=== PATIENT | male | born 1945 | race Caucasian/White ===

== ENCOUNTER → 2018-06-18 16:19 | Outpatient (REF) | payer MEDICARE, SELFPAY ==
[2018-06-18 19:13] LABS: Hemoglobin A1C 7.9 % (4.5-6.2)
[2018-06-18 19:16] LABS: Anion Gap 13.5 mmol/L (3-11); BUN 23 mg/dL (7-18); CO2 23.5 mmol/L (21.0-32.0); CREATININE 1.14 mg/dL (0.70-1.30); Calcium 8.9 mg/dL (8.5-10.1); Chloride 106 mmol/L (98-107); Glucose 93 mg/dL (70-100); Potassium 4.3 mmol/L (3.5-5.1); Sodium 143 mmol/L (136-145); TSH (W/Ref FT4) 0.41 uIU/mL (0.358-3.74)
[2018-06-18 19:23] LABS: COMMENT (LAB VIEW ONLY) 256.44 mg/dL; Microalb ug/mg Crea 5.1 ug/mg Cr
[2018-06-22 10:15] LABS: Hepatitis C Ab w Rflx HCV PCR Negative (NEGAT)
== END ==
LOC: NCHCN 16:19
PROVIDERS: PCP Family Medicine; Visit Provider Family Medicine
DX: E11.65 Type 2 diabetes mellitus with hyperglycemia (principal); E03.9 Hypothyroidism, unspecified; I10 Essential (primary) hypertension
CPT/HCPCS: 80048; 86803; 82043; 82570; 83036; 84443

== ENCOUNTER 2019-01-21 15:18 | Outpatient (REF) | payer MEDICARE, SELFPAY ==
[2019-01-21 14:13] LABS: Anion Gap 12.4 mmol/L (3-11); BUN 18 mg/dL (7-18); CO2 24.6 mmol/L (21.0-32.0); CREATININE 1.13 mg/dL (0.70-1.30); Chloride 101 mmol/L (98-107); Cholesterol 164 mg/dL (50-200); Glucose 319 mg/dL (70-100); HDL Cholesterol 49 mg/dL (40-60); LDL CHOLESTEROL 88 mg/dL (<100); Potassium 4.2 mmol/L (3.5-5.1); Sodium 138 mmol/L (136-145); Triglyceride 162 mg/dL (30-150)
[2019-01-21 14:22] LABS: Hemoglobin A1C 11.8 % (4.5-6.2)
== END 2019-01-21 15:38 ==
LOC: NCHCN 15:18
PROVIDERS: PCP Family Medicine; Visit Provider Family Medicine
DX: I10 Essential (primary) hypertension (principal); E11.65 Type 2 diabetes mellitus with hyperglycemia
CPT/HCPCS: 80048; 80061; 83721; 83036

== ENCOUNTER 2019-07-01 11:33 | Emergency (ER) | payer MEDICARE, SELFPAY ==
[2019-07-01 11:38] VITALS: BP 123/53; PULSE 78; RESP 16; TEMP 36.7; O2SAT 97
--- NOTE | 2019-07-01 12:06 | W.ED.GENAD ---
Discharge Plan Disposition Patient Disposition: HOME Condition: Stable Discharge Details Chief Complaint: Urinary Clinical Impression: Balanoposthitis, Hyperglycemia Primary Care Provider: Delia Holden ED Provider: Kasi Patino Home Meds and New Rx's Prescriptions: New clotrimazole 1 % cream 1 applic TP BID Qty: 14 RF: 1 mupirocin 2 % ointment 1 applic TP BID Qty: 15 RF: 0 Continued glimepiride 2 MG tablet 2 mg PO DAILY RF: 0 pravastatin [Pravachol] 80 MG tablet 80 mg PO DAILY RF: 0 metformin [Glucophage] 1,000 MG tablet 1,000 mg PO BID RF: 0 levothyroxine [Synthroid] 150 MCG tablet 150 mcg PO DAILY RF: 0 hydrochlorothiazide 25 MG tablet 25 mg PO DAILY RF: 0 lisinopril 40 MG tablet 40 mg PO DAILY RF: 0 aspirin [Aspir-81] 81 MG tablet,delayed release (DR/EC) 81 mg PO DAILY RF: 0 Discharge Instructions Instructions: Johan (ED) Additional Instructions: Please use topical antibiotics twice a day until symptoms resolve. Return immediately to the emergency department if you have inability to retract foreskin, fever chills, any rapid spreading of redness or discomfort to testicles or scrotum. Otherwise it is very important that you follow-up with your primary care provider for reassessment of your high blood sugar. Referrals: Delia Holden MD [Primary Care Provider] - 1 week Discharge Data Discharge Date/Time-TO BE ENTERED AT DEPARTURE: 07/01/19 13:30 Medical Decision Making Patient presenting to the emergency department for chief complaint penile discomfort. Patient reports this is been going on for the past month and does state some sensation of it being cracked and irritated. Patient states discomfort with retraction of the foreskin but denies any inability to perform this. Physical exam shows erythema and fissures of the foreskin with some edema. Patient does not have paraphimosis as forced skin is retractable, no sign of Chelsie's gangrene, no other systemic symptoms noted. Patient is a diabetic so blood sugar was checked even though he remains in states that he is asymptomatic. Blood sugar was 371. Patient states that he has not been checking his sugar and also has not been taking his weekly injectable insulin which she does not remember which type he is on. He states that there was a complication with the pharmacy obtaining his medication but that his blood sugar does run high on occasions and 371 is not significantly high for him. Patient now states he can pear picker this medication as since he was here and restart his meds as prescribed. Given that patient has no other symptoms I do not feel any further work-up is needed for patient's hyperglycemia. I feel that patient has Balanoposthitis. Patient placed up on Bactroban and Mupirocin twice daily. Return precautions were discussed. After discussion of diagnosis and plan of care patient has no further needs, questions, or concerns and states clear understanding to return to the emergency department for any worsening symptoms. HPI General Mode of arrival: ambulatory. Date/Time Provider Initiated Documentation: 07/01/19 11:47. Limitations to Documentation: no limitations. Information obtained by: patient, RN notes reviewed and old records reviewed. History of Present Illness 74 year old M presents to the emergency department with the chief complaint of Penis discomfort and swelling, described as moderate, with intensity rated at 6. Quality is described as burning and aching, and is localized to the genitals. Patient started experiencing this month(s) (1) and it has been constant. No relieving factors improve symptom(s), No exacerbating factors reported . Patient notes no other symptoms.. Patient did receive the following treatments prior to arrival, none Related Data Home Medications Medication Instructions Recorded Confirmed glimepiride 2 mg PO DAILY tab-cap 11/15/16 07/01/19 hydrochlorothiazide 25 mg PO DAILY tab-cap 11/15/16 07/01/19 levothyroxine [Synthroid] 150 mcg PO DAILY tab-cap 11/15/16 07/01/19 lisinopril 40 mg PO DAILY tab-cap 11/15/16 07/01/19 metformin [Glucophage] 1,000 mg PO BID tab-cap 11/15/16 07/01/19 pravastatin [Pravachol] 80 mg PO DAILY tab-cap 11/15/16 07/01/19 aspirin [Aspir-81] 81 mg PO DAILY 01/08/17 07/01/19 clotrimazole 1 applic TP BID #14 gm 07/01/19 mupirocin 1 applic TP BID #15 gm 07/01/19 Previous Rx's Medication Instructions Recorded clotrimazole 1 applic TP BID #14 gm 07/01/19 mupirocin 1 applic TP BID #15 gm 07/01/19 Allergies Allergy/AdvReac Type Severity Reaction Status Date / Time No Known Drug Allergies Allergy Unverified 07/01/19 11:43 General Stated Complaint: Urinary SHAHAB: 3 Review of Systems Constitutional Denies chills and Denies fever(s) Gastrointestinal Denies abdominal pain, Denies nausea and Denies vomiting Genitourinary Reports as per HPI, Denies hematuria, Denies difficulty urinating, Reports genital pain, Reports dysuria, Denies penile discharge, Denies scrotal swelling, Denies testicular mass, Denies testicular pain, Denies urinary frequency, Denies urinary incontinence and Denies urinary urgency Integumentary/Breasts Denies rash [facility] Surgical History Colonoscopy - IV Sedation (01/08/17) Tonsillectomy Social History Smoking/Tobacco Use Status: Former Tobacco Use Alcohol Intake: current Alcohol Intake frequency: 0-2 drinks per day Alcohol type: beer Drug use: Never Do you feel safe at home: Yes Do you feel safe in your relationship?: Yes Exam Const General: cooperative and no acute distress Orientation: alert, awake and oriented x3 Resp Effort & Inspection: normal respiratory effort and able to speak in complete sentences GI Palpation: nontender Penis: edematous, erythematous, foreskin retracts, no paraphimosis, pustules and ulceration Meatus: no meatla discharge Scrotum: scrotum normal Testes: normal, testicular lie normal and epididymides normal Course Vital Signs Temperature 36.7 C 07/01/19 11:38 Pulse 78 07/01/19 11:38 Respiratory Rate 16 07/01/19 11:38 Blood Pressure 123/53 L 07/01/19 11:38 Pulse Oximetry 97 07/01/19 11:38 Temperature 36.7 C 07/01/19 11:38 Temperature Source Skin 07/01/19 11:38 Pulse 78 07/01/19 11:38 Respiratory Rate 16 07/01/19 11:38 Respiratory Effort Non-Labored 07/01/19 11:41 Blood Pressure 123/53 L 07/01/19 11:38 Blood Pressure Position Sitting 07/01/19 11:38 Pulse Oximetry 97 07/01/19 11:38 Oxygen Delivery Method Room Air 07/01/19 11:38 Oxygen Flow Rate 0 07/01/19 11:38 Pain Level 5 07/01/19 11:38
[2019-07-01 12:08] LABS: Bilirubin Negative (Negative); Blood Negative (Negative); Clarity Clear (Clear); Glucose 500 mg/dL (Negative); Ketones Negative (Negative); Leukocyte Esterase Negative (Negative); Nitrite Negative (Negative); Urobilinogen 0.2 EU/dL (Up TO 0.2)
== END 2019-07-01 13:30 | disposition home or self-care (01) ==
PROVIDERS: Emergency Provider Nurse Practitioner Family; PCP Family Medicine
DX: N47.6 Balanoposthitis (principal); E11.65 Type 2 diabetes mellitus with hyperglycemia; Z79.84 Long term (current) use of oral hypoglycemic drugs
CPT/HCPCS: 36416; 82962; 99283; 81003

== ENCOUNTER 2019-07-15 03:48 | Outpatient (CLI) | payer OTHER, MEDICARE, SELFPAY ==
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
== END 2019-07-15 04:08 ==
PROVIDERS: PCP Family Medicine; Visit Provider Family Medicine
DX: M79.642 Pain in left hand (principal); R07.81 Pleurodynia; S62.305A Unspecified fracture of fourth metacarpal bone, left hand, initial encounter for closed fracture; J90 Pleural effusion, not elsewhere classified; S22.41XD Multiple fractures of ribs, right side, subsequent encounter for fracture with routine healing
CPT/HCPCS: 71046; 71100; 73130

== ENCOUNTER 2019-07-20 14:27 | Outpatient (CLI) | payer OTHER, SELFPAY ==
--- NOTE | 2019-07-20 14:11 | DI.RAD_ITS ---
SYMPTOMS/DIAGNOSIS: F/U FRACTURE LEFT HAND: Three views were obtained. The previously described fracture of the 4th metacarpal is again noted with little if any change in alignment of the fracture fragments in comparison with the previous examination of 07/15/19.
== END 2019-07-20 14:47 ==
PROVIDERS: PCP Family Medicine; Referring Provider Family Medicine; Visit Provider Student in an Organized Health Care Education/Training Program
DX: S62.305D Unspecified fracture of fourth metacarpal bone, left hand, subsequent encounter for fracture with routine healing (principal)
CPT/HCPCS: 73130

== ENCOUNTER 2019-08-24 07:20 | Outpatient (CLI) | payer MEDICARE, SELFPAY ==
--- NOTE | 2019-08-24 13:32 | DI.RAD_ITS ---
EXAM: XR HAND LT COMPLETE CLINICAL HISTORY: F/U FRACTURE TECHNIQUE: COMPARISON: XR hand LT complete from 07/20/2019 FINDINGS: Three views were obtained show previously described fracture of the 3rd metacarpal with no gross inte rval change in alignment of the fracture fragments comparison with previous examination of July 20. There is increased callus at the fracture site. IMPRESSION:
== END 2019-08-24 07:40 ==
PROVIDERS: PCP Family Medicine; Visit Provider Student in an Organized Health Care Education/Training Program
DX: S62.335D Displaced fracture of neck of fourth metacarpal bone, left hand, subsequent encounter for fracture with routine healing (principal)
CPT/HCPCS: 73130

== ENCOUNTER 2019-08-24 18:30 | Outpatient (REF) | payer MEDICARE, SELFPAY ==
[2019-08-24 18:37] LABS: HCT 42.7 % (40.0-50.0); HGB 14.2 g/dL (13.5-17.5); Mean Corp. HGB Concentration 33.3 g/dL (32.0-36.0); Mean Corpuscular Hemoglobin 30.9 pg (27.0-33.0); Mean Platelet Volume 12.2 fL (8.0-11.0); Platelet Count 287 x1000/uL (130-400); RBC 4.59 m/cumm (4.50-6.00); RBC Distribution Width 12.6 % (11.8-14.1); White Blood Cell Count 9.75 k/cumm (4.4-10.8)
[2019-08-24 19:01] LABS: Hemoglobin A1C 10.1 % (4.5-6.2)
[2019-08-24 19:27] LABS: ALT 19 U/L (16-63); AST 11 U/L (15-37); Albumin 3.7 g/dL (3.4-5.0); Alkaline Phosphatase 91 U/L (46-116); Amylase 205 U/L (25-115); Anion Gap 17.2 mmol/L (3-11); BUN 18 mg/dL (7-18); Bilirubin, Total 0.4 mg/dL (0.2-1.0); CO2 20.8 mmol/L (21.0-32.0); CREATININE 0.94 mg/dL (0.70-1.30); Chloride 104 mmol/L (98-107); Glucose 376 mg/dL (70-100); Potassium 4.4 mmol/L (3.5-5.1); Sodium 142 mmol/L (136-145); TSH (W/Ref FT4) 2.96 uIU/mL (0.36-3.74); Total Protein 6.9 g/dL (6.4-8.2)
[2019-08-24 19:57] LABS: Lipase 5048 U/L (73-393)
== END 2019-08-24 18:50 ==
LOC: NCHCN 18:30
PROVIDERS: PCP Family Medicine; Visit Provider Family Medicine
DX: E11.65 Type 2 diabetes mellitus with hyperglycemia (principal); E03.9 Hypothyroidism, unspecified
CPT/HCPCS: 80053; 83690; 85027; 82150; 83036; 84443

== ENCOUNTER 2019-09-01 00:39 | Outpatient (CLI) | payer MEDICARE, SELFPAY ==
[2019-09-01] MEDS: Omnipaque 350 MG/ML 100 ML BTL IJ (11:07)
[2019-09-01] MEDS: Normal Saline Flush 10 ML SYR IVP (11:08)
--- NOTE | 2019-09-01 11:10 | DI.CT_ITS ---
EXAM: CT ABDOMEN WO/W CLINICAL HISTORY: PANCREATIC DISORDER, STONE K86.9. TECHNIQUE: The exam was performed according to the usual protocol. COMPARISON: CT_ABDOMEN, PELVIS from 07/02/2019 FINDINGS: When compared with the previous examination, again noted is hepatomegaly. A small area of radiolucen cy in the posterior right hepatic lobe proved to represent a hemangioma on the prior study. The gall bladder is contracted. There are no gallstones. There is pancreatic atrophy and innumerable pancreat ic calculi are demonstrated. The findings consistent with the residua of a pancreatitis. When compar ed with the prior study, again noted is a 8 mm stone in the pancreas adjacent to the proximal duct wi th resultant pancreatic ductal dilatation which may be slightly increased when compared with the prio r study of 07/02/2019. There is no evidence of a pancreatic mass. The spleen is again noted to conta in a region of radiolucency superiorly which is unchanged and likely represents a cyst. Again noted are small left renal cysts. The adrenals are intact. There is no evidence of bowel obstruction. No focal bowel abnormality is apparent. There is no evidence of free air or free fluid in the demonstra sukhwinder portions of the intraperitoneal space. IMPRESSION: The abdominal CT is compared with a prior study and again reveals atrophic changes involving the mclain creas with numerous calcifications. A calcification overlying the proximal portion of the pancreatic duct is unchanged. There may be slight interval increase in the diameter of the pancreatic duct. Th ere is no evidence of dilatation of the intrahepatic or common duct. Again noted is a small right he patic mass which was previously demonstrated to represent hemangioma. No other hepatic abnormality i s identified.
== END 2019-09-01 00:59 ==
PROVIDERS: PCP Family Medicine; Visit Provider Family Medicine
DX: K86.89 Other specified diseases of pancreas (principal); D18.03 Hemangioma of intra-abdominal structures
CPT/HCPCS: 74170; J3490

== ENCOUNTER 2019-09-02 14:16 | Outpatient (REF) | payer MEDICARE, SELFPAY ==
[2019-09-02 20:04] LABS: COMMENT (LAB VIEW ONLY) 81.65 mg/dL; Microalb ug/mg Crea 13.5 ug/mg Cr
== END 2019-09-02 14:36 ==
LOC: NCHCN 14:16
PROVIDERS: PCP Family Medicine; Visit Provider Family Medicine
DX: E11.65 Type 2 diabetes mellitus with hyperglycemia (principal)
CPT/HCPCS: 82043; 82570

== ENCOUNTER 2019-09-21 14:14 | Outpatient (CLI) | payer MEDICARE, SELFPAY ==
--- NOTE | 2019-09-21 14:07 | DI.RAD_ITS ---
EXAM: XR HAND LT LIMITED INDICATION: F/U FRACTURE. COMPARISON: XR HAND LT COMPLETE from 08/24/2019 TECHNIQUE: 2D digital imaging was performed. FINDINGS: There is no change in alignment of the fracture involving the left 4th metacarpal. The fracture line is still well visualized. No new fractures or dislocations are present. There are mild degenerativ e changes in the hand and wrist. The soft tissues are unremarkable. IMPRESSION: Stable left 4th metacarpal fracture.
== END 2019-09-21 14:34 ==
PROVIDERS: PCP Family Medicine; Visit Provider Student in an Organized Health Care Education/Training Program
DX: S62.335D Displaced fracture of neck of fourth metacarpal bone, left hand, subsequent encounter for fracture with routine healing (principal)
CPT/HCPCS: 73120

== ENCOUNTER 2020-01-05 15:58 | Outpatient (CLI) | payer OTHER, MEDICARE, SELFPAY ==
--- NOTE | 2020-01-05 15:00 | DI.RAD_ITS ---
EXAM: XR HAND LT LIMITED INDICATION: FOLLOW UP. COMPARISON: XR HAND LT LIMITED from 09/21/2019 TECHNIQUE: 2D digital imaging was performed. FINDINGS: There has been continued healing of the previously noted fracture of the 4th metacarpal. There has b een no change in alignment. No new abnormalities are seen. DATA REPOSITORY: RADIATION DOSE DELIVERED:
== END 2020-01-05 16:18 ==
PROVIDERS: PCP Family Medicine; Visit Provider Student in an Organized Health Care Education/Training Program
DX: S62.335D Displaced fracture of neck of fourth metacarpal bone, left hand, subsequent encounter for fracture with routine healing (principal)
CPT/HCPCS: 73120

== ENCOUNTER 2020-04-27 08:52 | Outpatient (REF) | payer MEDICARE, SELFPAY ==
[2020-04-27 17:44] LABS: Hemoglobin A1C 10.4 % (3.8-5.6)
== END 2020-04-27 09:12 ==
LOC: NCHCN 08:52
PROVIDERS: PCP Family Medicine; Visit Provider Family Medicine
DX: E11.65 Type 2 diabetes mellitus with hyperglycemia (principal)
CPT/HCPCS: 83036

== ENCOUNTER 2020-08-11 16:25 | Outpatient (REF) | payer MEDICARE, OTHER, SELFPAY ==
[2020-08-11 19:28] LABS: HCT 38.4 % (40.0-50.0); HGB 13.2 g/dL (13.5-17.5); MCH 31.8 pg (27.0-33.0); MCHC 34.4 % (32.0-36.0); MCV 92.5 fL (80-95); MPV 11.6 fL (8.0-11.0); Platelet Count 261 10^3/uL (130-400); RBC 4.15 10^6/uL (4.36-5.78); RDW 12.1 % (11.8-14.1); WBC 12.06 10^3/uL (4.4-10.8)
[2020-08-11 20:26] LABS: ALT 18 U/L (16-63); AST 9 U/L (15-37); Albumin 3.5 g/dL (3.4-5.0); Alkaline Phosphatase 68 U/L (46-116); BUN 19 mg/dL (7-18); Chloride 105 mmol/L (98-107); Glucose 190 mg/dL (74-106); Potassium 4.1 mmol/L (3.5-5.1); Sodium 139 mmol/L (136-145); TSH (W/Ref FT4) 1.83 uIU/mL (0.36-3.74); Total Protein 6.9 g/dL (6.4-8.2)
[2020-08-11 20:37] LABS: Bilirubin, Total 0.4 mg/dL (0.2-1.0)
[2020-08-11 21:07] LABS: Hemoglobin A1C 10.4 % (<5.7)
== END 2020-08-11 16:45 ==
LOC: NCHCN 16:25
PROVIDERS: PCP Family Medicine; Visit Provider Family Medicine
DX: E11.65 Type 2 diabetes mellitus with hyperglycemia (principal); I10 Essential (primary) hypertension; E78.5 Hyperlipidemia, unspecified; E03.9 Hypothyroidism, unspecified; K76.0 Fatty (change of) liver, not elsewhere classified
CPT/HCPCS: 80053; 85027; 83036; 84443

== ENCOUNTER 2020-11-30 13:44 | Outpatient (REF) | payer MEDICARE, OTHER, SELFPAY ==
--- OUTSIDE RECORDS SUMMARY | 2020-11-30 13:50 | XMS_ITS ---
:1945 Author Care Team Providers Name Role Phone DR. JAMARI CHRISTIAN Primary Care Provider [phone] DR. JAMARI CHRISTIAN Referring Provider [phone] DR. JAMARI CHRISTIAN Primary Care Provider [phone] DR. JAMARI CHRISTIAN Referring Provider [phone] Allergies Code Code System Name Reaction Severity Status Onset NKDA ? Medications Name Status Start Date Stop Date ? ? Basaglar KwikPen U-100 Insulin Active ? N ot available Inject subcutaneously at bedtime. Start with 10 units and titrate every few days for goal of fastings under 140. Up to 50 units Bydureon 2 mg/0.65 mL subcutaneous pen injector Active ? Not available Inject 2 mg every week by subcutaneous route. Comfort EZ Pen Commerce 32 gauge x 3/16 Active ? Not available Use with lantus solostar at bedtime FreeStyle Test strips Active ? Not availa ble TEST ONCE DAILY FreeStyle Test Strips in vitro test Active ? Not available Use one strip to test blood sugar every morning before breakfas t glimepiride 4 mg tablet Active ? Not avai lable Take 1 tablet every day by oral route. Glucophage 500 mg tablet Active ? Not chucho ilable Take 2 tablets twice a day by oral route. hydrochlorothiazide 25 mg tablet Active ? Not available Take 1 tablet every day by oral route. hydrocodone 5 mg-acetaminophen 325 mg tablet Active ? Not available Take 1 tablet every 12 hours by oral route as needed. ibuprofen 800 mg tablet Active ? Not avai lable Take 1 tablet 3 times a day by oral route as needed. Levitra 20 mg tablet Active ? Not availab le TAKE 1 TABLET (20 MG) BY ORAL ROUTE ONC E DAILY NEEDED APPROXIMATELY 1 HOUR BEFORE SEXUAL ACTIVITY lisinopril 40 mg tablet Active ? Not avai lable Take 1 tablet every day by oral route. Novofine 32 32 gauge x 1/4 needle Active ? Not available Test blood glucose daily as directed Pravachol 80 mg tablet Active ? Not avail able Take 1 tablet every day by oral route. Synthroid 150 mcg tablet Active ? Not chucho ilable Take 1 tablet every day by oral route. Victoza 2-Nicanor 0.6 mg/0.1 mL (18 mg/3 mL) subcutaneous pen inject or Active ? Not available Inject 18 mg every week by subcutaneous route. Problems Name Status Onset Date Source ? Adenomatous Polyp of Colon Active 11/10/2016 ? Hypothyroidism Active 03/18/2019 ? Type 2 Diabetes Mellitus Active 03/18/2019 ? Hyperlipidemia Active 03/18/2019 ? Obesity Active 03/18/2019 ? Tobacco User Active 03/18/2019 ? Hypertensive Disorder Active 03/18/2019 ? Umbilical Hernia Active 03/18/2019 ? Steatosis of Liver Active 03/18/2019 ? Spinal Stenosis Active 03/18/2019 ? Low Back Pain Active 03/18/2019 ? Type II Diabetes Mellitus Uncontrolled Active ? ? Disorder of Pancreas Active ? ? Rib Pain Active ? ? Disorder Due to and Following Fracture at Wrist Active ? ? And/or Hand Level History of Adenomatous Polyp of Colon Active ? ? Joint Pain in Left Hand Active ? ? Procedures Date Name Performed by ? 01/08/2017 Colonoscopy Information not avai lable ? Tonsillectomy Information not avai lable Results Lab Results None recorded. Past Encounters 10/28/2019 Vince Nation, DO: [address] [place] [address], Ph. Social History None recorded. Vaccine List Vaccine Type Td (adult) 02/05/2019 zoster live 04/05/2010 Plan of Care Reminders Provider Appointments None ? ? recorded. Lab None ? ? recorded. Referral None ? ? recorded. Procedures None ? ? recorded. Surgeries None ? ? recorded. Imaging None ? ? recorded. Vitals None recorded.
[2020-11-30 16:33] LABS: COMMENT (LAB VIEW ONLY) 280.87 mg/dL; Microalb ug/mg Crea 23.5 ug/mg Cr
== END 2020-11-30 14:04 ==
LOC: NCHCN 13:44
PROVIDERS: PCP Family Medicine; Visit Provider Family Medicine
DX: E11.65 Type 2 diabetes mellitus with hyperglycemia (principal)
CPT/HCPCS: 82043; 82570

== ENCOUNTER 2021-02-09 02:19 | Outpatient (CLI) | payer MEDICARE, OTHER, SELFPAY ==
[2021-02-09 13:46] LABS: Source Nasal/Nares
[2021-02-09 21:16] LABS: COVID-19 PCR Negative (Negative)
== END 2021-02-09 02:20 | disposition home or self-care (01) ==
LOC: LBO 02:19
PROVIDERS: PCP Family Medicine; Visit Provider Surgery
DX: Z20.822 Contact with and (suspected) exposure to COVID-19 (principal); Z01.818 Encounter for other preprocedural examination
CPT/HCPCS: 87635

== ENCOUNTER 2021-05-17 17:11 | Emergency (ER) | payer MEDICARE, OTHER, SELFPAY ==
[2021-05-17 17:18] VITALS: BP 154/69; PULSE 57; TEMP 36.2; O2SAT 100
--- NOTE | 2021-05-17 17:40 | ED.GENADUL_ITS ---
Discharge Plan Disposition Patient Disposition: HOME Condition: Stable Discharge Details Clinical Impression: Back pain with left-sided sciatica Primary Care Provider: Delia Holden ED Provider: Pablo Alvarenga Home Meds and New Rx's Prescriptions: Continued glimepiride 2 MG tablet 2 mg PO DAILY RF: 0 pravastatin [Pravachol] 80 MG tablet 80 mg PO DAILY RF: 0 metformin [Glucophage] 1,000 MG tablet 1,000 mg PO BID RF: 0 levothyroxine [Synthroid] 150 MCG tablet 150 mcg PO DAILY RF: 0 lisinopril 40 MG tablet 40 mg PO DAILY RF: 0 aspirin [Aspir-81] 81 MG tablet,delayed release (DR/EC) 81 mg PO DAILY RF: 0 Levemir FlexTouch U-100 Insuln 100 unit/mL (3 mL) insulin pen 70 unit SUBCUT DAILY RF: 0 Victoza 3-Nicanor 0.6 mg/0.1 mL (18 mg/3 mL) pen injector 18 mg SUBCUT DAILY RF: 0 Discharge Instructions Instructions: Sciatica (ED) Additional Instructions: Please take ibuprofen over the counter. Take 600mg by mouth every 6 hours as needed for pain --start tomorrow. Use [id number] lidocaine patches. Dose these according to label. Please follow-up with your primary care physician. If pain persists, additional diagnostic testing including MRI may be indicated. Please return to the emerge department for any worsening or new concerning symptoms. Referrals: Delia Holden MD [Primary Care Provider] - Medical Decision Making 75-year-old male with acute on chronic low back pain with sciatic component. Patient has no signs/symptoms of cauda equina. Plan to treat with Toradol 30 mg IM and lidocaine patch. Plan will be for outpatient follow-up with PCP. I explained the patient he may need repeat MRI if pain persist or condition progresses. He understands he should call his primary care physician tomorrow. Usual and customary discharge instructions otherwise reviewed with patient. HPI General Mode of arrival: ambulatory . Date/Time Provider Initiated Documentation: 05/17/21 17:19 . Limitations to Documentation: no limitations . Information obtained by: patient . HPI Narrative: 75-year-old male here with chief complaint of back pain. Patient notes chronic back pain for 15 years, now with worsening exacerbation over the past few days. Pain localized to left lower lateral back and radiates into his buttock and lateral to anterior thigh. Patient denies recent injury. No fever. No numbness. No associated bowel or bladder dysfunction. Patient is diabetic but notes blood sugars have been well controlled with insulin. Related Data Home Medications Medication Instructions Recorded Confirmed glimepiride 2 mg PO DAILY tab-cap 11/15/16 05/17/21 levothyroxine [Synthroid] 150 mcg PO DAILY tab-cap 11/15/16 05/17/21 lisinopril 40 mg PO DAILY tab-cap 11/15/16 05/17/21 metformin [Glucophage] 1,000 mg PO BID tab-cap 11/15/16 05/17/21 pravastatin [Pravachol] 80 mg PO DAILY tab-cap 11/15/16 05/17/21 aspirin [Aspir-81] 81 mg PO DAILY 01/08/17 05/17/21 Levemir FlexTouch U-100 Insuln 70 unit SUBCUT DAILY 05/17/21 05/17/21 Victoza 3-Nicanor 18 mg SUBCUT DAILY 05/17/21 05/17/21 Allergies Allergy/AdvReac Type Severity Reaction Status Date / Time No Known Drug Allergies Allergy Unverified 05/17/21 17:23 General Stated Complaint: Nk/Back Pain SHAHAB: 4 Review of Systems All systems reviewed & are unremarkable except as noted in HPI and below Constitutional Constitutional: Denies fever(s) Musculoskeletal Musculoskeletal: Reports as per HPI Integumentary/Breasts Skin/Breast: Denies rash Neurologic Neurologic: Reports as per HPI [facility] Surgical History Colonoscopy - IV Sedation (01/08/17) Tonsillectomy Social History Smoking/Tobacco Use Status: Former Tobacco Use Smoking risk assessment performed?: Yes Alcohol Intake: current Alcohol Intake frequency: 0-2 drinks per day Alcohol type: beer Drug use: Never Substance use type: does not use Do you feel safe at home: Yes Do you feel safe in your relationship?: Yes Exam Const General: cooperative and no acute distress HENMT Mouth: moist mucous membranes Eyes Conjunctivae: normal conjunctivae Sclera: normal sclerae Neck Neck: trachea midline and supple Resp Auscultation: clear to auscultation bilaterally, no rales, no rhonchi and no wheezes Cardio Rate: regular rate and not tachycardic Rhythm: regular rhythm Heart Sounds: murmur GI Palpation: soft, not firm, no guarding, no masses, not rigid and nontender Back/Spine/Pelvis Thoracic/Lumbar Spine: No thoracic spinal tenderness, No lumbar spinal tenderness and straight leg raise positive Skin General skin exam: no rashes or lesions noted Neuro General: patient alert, patient awake, patient oriented x3 and tone normal Cognition: normal cognition Motor: strength 5/5 throughout Sensory Exam: no sensory deficits noted Other: No saddle anesth Extrem General: no edema Course Vital Signs Vital signs: Vital Signs Temperature 36.2 C L 05/17/21 17:18 Pulse 57 L 05/17/21 17:18 Blood Pressure 154/69 H 05/17/21 17:18 Pulse Oximetry 100 05/17/21 17:18 Temperature 36.2 C L 05/17/21 17:18 Pulse 57 L 05/17/21 17:18 Respiratory Effort Non-Labored 05/17/21 17:22 Blood Pressure 154/69 H 05/17/21 17:18 Blood Pressure Position Sitting 05/17/21 17:18 Pulse Oximetry 100 05/17/21 17:18 Oxygen Delivery Method Room Air 05/17/21 17:18 Oxygen Flow Rate 0 05/17/21 17:18 Pain Level 9 05/17/21 17:18
[2021-05-17] MEDS: Lidocaine 5% Patch 1 PATCH TP (17:59)
[2021-05-17] MEDS: Ketorolac 30 MG/ML VIAL IM (18:01)
== END 2021-05-17 18:10 | disposition home or self-care (01) ==
PROVIDERS: Emergency Provider Student in an Organized Health Care Education/Training Program; PCP Family Medicine
DX: M54.42 Lumbago with sciatica, left side (principal)
CPT/HCPCS: 96372; 99284; 99283; J1885

== ENCOUNTER 2021-05-21 16:00 | Outpatient (CLI) | payer MEDICARE, OTHER, SELFPAY ==
--- NOTE | 2021-05-21 | DI.RAD_ITS ---
Exam(s) XR HIP LT COMPLETE AP PELVIS EXAM: XR HIP LT COMPLETE AP PELVIS CLINICAL HISTORY: HIP JOINT PAIN; LEFT M25.552. TECHNIQUE: 2D digital imaging was performed. COMPARISON: CT CT ABDOMEN WO/W from 09/01/[address] ABDOMEN WO/W from 09/01/2019 FINDINGS: There is no evidence of pelvic nor hip fracture. Mild degenerative changes in the left hip noted. N o osseous lesions. Advanced disc space narrowing in the lumbar spine noted. Sacroiliac joints appea r unremarkable. IMPRESSION: DATA REPOSITORY: RADIATION DOSE DELIVERED:
--- NOTE | 2021-05-21 16:44 | DI.VRAD_ITS ---
PROCEDURE INFORMATION: Exam: XR Left Hip Exam date and time: 05/21/2021 3:50 PM Age: 75 years old Clinical indication: Hip pain; Left hip TECHNIQUE: Imaging protocol: XR Left hip. Views: 2 or 3 views hip with pelvis when performed. COMPARISON: CT ABDOMEN, PELVIS 07/02/2019 10:01 AM FINDINGS: Bones/joints: Degenerative changes in both hips; There is no evidence of acute fracture.There is no evidence of malalignment or dislocation. Degenerative changes in the lumbar spine Soft tissues: Unremarkable. IMPRESSION: There is no evidence of acute fracture.There is no evidence of malalignment or dislocation. Dictated and Authenticated by: Maude Velarde MD. Ordering:DEANDRA Lin MD
== END 2021-05-21 16:20 ==
PROVIDERS: PCP Family Medicine; Visit Provider Family Medicine
DX: M25.552 Pain in left hip (principal)
CPT/HCPCS: 73502

== ENCOUNTER 2021-05-21 17:09 | Outpatient (REF) | payer MEDICARE, OTHER, SELFPAY ==
[2021-05-21 22:08] LABS: Bilirubin Negative (Negative); Blood Negative (Negative); Clarity Clear (Clear); Glucose 250 mg/dL (Negative); Ketones Negative (Negative); Leukocyte Esterase Negative (Negative); Nitrite Negative (Negative); Specific Gravity >= 1.030 (1.005-1.025); Urobilinogen 0.2 EU/dL (Up TO 0.2)
[2021-05-21 22:19] LABS: Bacteria Negative HPF (Negative); C & S Indicated? No; Crystals Few Amorphous HPF (Negative); Epithelial Cells Many HPF (Negative); Mucus Heavy (Negative); RBC 0-2 HPF (0-2); WBC 0-2 HPF (0-5)
== END 2021-05-21 17:10 | disposition home or self-care (01) ==
LOC: NCHCN 17:09
PROVIDERS: PCP Family Medicine; Visit Provider Family Medicine
DX: R39.15 Urgency of urination (principal)
CPT/HCPCS: 81003; 81015

== ENCOUNTER 2021-06-21 03:24 | Outpatient (CLI) | payer MEDICARE, OTHER, SELFPAY ==
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
== END 2021-06-21 03:44 ==
PROVIDERS: PCP Family Medicine; Visit Provider Family Medicine
DX: M47.816 Spondylosis without myelopathy or radiculopathy, lumbar region (principal); M48.061 Spinal stenosis, lumbar region without neurogenic claudication; M54.42 Lumbago with sciatica, left side; M25.552 Pain in left hip; W19.XXXA Unspecified fall, initial encounter
CPT/HCPCS: 72148

== ENCOUNTER → 2021-09-18 11:15 | Outpatient (BNVA) | payer MEDICARE, OTHER, SELFPAY | PROVIDERS: PCP Family Medicine; Referring Provider Family Medicine; Visit Provider Internal Medicine Cardiovascular Disease | DX: Z01.810 Encounter for preprocedural cardiovascular examination (principal); R94.31 Abnormal electrocardiogram [ECG] [EKG]; M48.00 Spinal stenosis, site unspecified; I10 Essential (primary) hypertension; E11.9 Type 2 diabetes mellitus without complications | CPT/HCPCS: 93005; 99203; 99214 ==

== ENCOUNTER 2021-10-02 11:15 | Outpatient (REF) | payer MEDICARE, OTHER, SELFPAY ==
[2021-10-02 14:43] LABS: HCT 42.9 % (40.0-50.0); HGB 14.3 g/dL (13.5-17.5); MCH 30.9 pg (27.0-33.0); MCHC 33.3 % (32.0-36.0); MCV 92.7 fL (80-95); MPV 11.4 fL (8.0-11.0); Platelet Count 238 10^3/uL (130-400); RBC 4.63 10^6/uL (4.36-5.78); WBC 8.48 10^3/uL (4.4-10.8)
[2021-10-02 15:46] LABS: ALT 29 U/L (16-63); AST 13 U/L (15-37); Albumin 3.6 g/dL (3.4-5.0); Alkaline Phosphatase 68 U/L (46-116); Anion Gap 10.2 mmol/L (3-11); BUN 16 mg/dL (7-18); Bilirubin, Total 0.3 mg/dL (0.2-1.0); CO2 25.8 mmol/L (21.0-32.0); CREATININE 0.8 mg/dL (0.70-1.30); Calcium 8.6 mg/dL (8.5-10.1); Calculated LDL 36 mg/dL (<100); Chloride 108 mmol/L (98-107); Cholesterol 100 mg/dL (<200); Glucose 156 mg/dL (74-106); HDL Cholesterol 53 mg/dL (40-60); Potassium 4.1 mmol/L (3.5-5.1); Sodium 144 mmol/L (136-145); TSH (W/Ref FT4) 5.81 uIU/mL (0.36-3.74); Total Protein 6.5 g/dL (6.4-8.2); Triglyceride 56 mg/dL (<150)
[2021-10-02 16:32] LABS: FREE T4 1.15 ng/dL (0.76-1.46)
== END 2021-10-02 11:16 | disposition home or self-care (01) ==
LOC: NCHCN 11:15
PROVIDERS: PCP Family Medicine; Visit Provider Family Medicine
DX: E03.9 Hypothyroidism, unspecified (principal); I10 Essential (primary) hypertension; E11.65 Type 2 diabetes mellitus with hyperglycemia; Z01.818 Encounter for other preprocedural examination
CPT/HCPCS: 80053; 80061; 85027; 84439; 84443

== ENCOUNTER 2022-01-07 14:17 | Outpatient (REF) | payer MEDICARE, OTHER, SELFPAY ==
[2022-01-07 17:39] LABS: COMMENT (LAB VIEW ONLY) 41.67 mg/dL; Microalb ug/mg Crea 41.8 ug/mg Cr
[2022-01-07 17:50] LABS: TSH (W/Ref FT4) 2.14 uIU/mL (0.36-3.74)
== END 2022-01-07 14:18 | disposition home or self-care (01) ==
LOC: NCHCN 14:17
PROVIDERS: PCP Family Medicine; Visit Provider Family Medicine
DX: E11.65 Type 2 diabetes mellitus with hyperglycemia (principal); E03.9 Hypothyroidism, unspecified
CPT/HCPCS: 82043; 82570; 84443

== ENCOUNTER 2022-09-08 16:06 | Emergency (ER) | payer MEDICARE, SELFPAY ==
[2022-09-08 16:10] VITALS: BP 127/71; PULSE 86; RESP 16; TEMP 37; O2SAT 98
--- NOTE | 2022-09-08 16:20 | ED.GENADUL_ITS ---
Discharge Plan Disposition Patient Disposition: HOME Condition: Stable Discharge Details Clinical Impression: Abscess, gluteal, left Primary Care Provider: Delia Holden ED Provider: Maria Alejandra Dempsey Home Meds and New Rx's Prescriptions: New clindamycin HCl 150 mg capsule 450 mg PO TID 7 Days Qty: 63 0RF Continued metformin [Glucophage] 1,000 MG tablet 1,000 mg PO BID levothyroxine [Synthroid] 150 MCG tablet 150 mcg PO DAILY lisinopril 40 MG tablet 40 mg PO DAILY ibuprofen 800 mg tablet 800 mg PO TID atorvastatin 40 mg tablet 40 mg PO DAILY Jardiance 25 mg tablet 25 mg PO DAILY hydrocodone-acetaminophen 5-325 mg tablet 1 tab PO BID PRN Victoza 3-Nicanor 0.6 mg/0.1 mL (18 mg/3 mL) pen injector 18 mg SUBCUT DAILY Levemir FlexTouch U-100 Insuln 100 unit/mL (3 mL) insulin pen SUBCUT Discharge Instructions Instructions: Abscess (ED) Additional Instructions: Please take the antibiotic 3 tablets x 3 times daily for the next 7 days. Follow-up with general surgery clinic within 3 to 5 days. He need to have the wound rechecked in 3 days and have the packing removed. If the packing falls out before then that is okay. Keep clean and dry and covered. Follow up with primary care provider in 3-5 days. Return to ED sooner if any worsening or concerns. Increase oral fluids. Please take Tylenol or Ibuprofen with food every 4-6 hours as needed for pain and swelling. Referrals: Louis Montejo MD [ [facility] STAFF PHYSICIAN] - 3 days (Left gluteal abscess, wound re-check) Medical Decision Making 77-year-old male presents to the ER with chief complaint of an abscess to his tailbone which he reports in it for approximately 1 to 2 months. He reports over the last 3 days after sitting on a heating pad he has noticed some drainage. CBC shows mild leukocytosis with a white blood cell count of 13.80, neutrophils 9.63, BUN 22 glucose 257. After further evaluation and necrotic possible tissue labs ordered and CT imaging to evaluate abscess and wound tract. CT exam reports 2.9 x 1.1 cm 184: Spoke with Dr. Montejo who is on-call for general surgery who was able to personally review the CT images. He does not recommend urgent or emergent debridement at this time. He is agreeable to having an I&D here in the ER and follow-up in the office as an outpatient. 1915: Area was cleaned with chlorhexidine, iodine and irrigated with sterile saline. 1 inch packing placed into the wound and 4 x 4 dressing applied. Instructed patient to be seen within 3 to 5 days for wound recheck. I did dis cuss changing the outer dressing daily. If the packing falls out on its own that is okay. Patient verbalized understanding. Will place patient on the care management list to follow-up with general surgery I will place patient on clindamycin. This text was generated using [employer] dictation system, please disregard any oddities of phrase or misspellings. Imaging Data Radiologic Study: Imaging: CT Scan Radiologist's impression: FINDINGS: Stomach and bowel: Visualized small bowel and colon are unremarkable. Appendix: No evidence of appendicitis. Intraperitoneal space: Unremarkable. No free air. No significant fluid collection. Lymph nodes: Unremarkable. No enlarged lymph nodes. Urinary bladder: Normal. No mass. Reproductive: Normal as visualized. Bones/joints: Degenerative changes and levoscoliosis in the visualized lower lumbar spine. Severe left hip degenerative changes No acute fracture. No dislocation. Soft tissues: Locule containing fluid and gas in the medial left gluteal fold axial image 46 measuring 2.9 by 1.1 cm. Mild skin thickening and subcutaneous infiltration Left renal cyst and additional indeterminate hypodensities IMPRESSION: Medial left gluteal/perianal abscess as described Lab Data Lab results reviewed: Yes I reviewed the patient's lab results. Labs: 09/08/22 19:11 Buttock - Left Wound Culture - Pending 09/08/22 19:11 Buttock - Left Gram Stain - Final Laboratory Tests Range/Units 09/08/22 09/08/22 16:45 16:45 WBC (4.4-10.8) 10^3/uL 13.80 H RBC (4.36-5.78) 10^6/uL 5.03 Hgb (13.5-17.5) g/dL 15.8 Hct (40.0-50.0) % 47.0 MCV (80-95) fL 93 MCH (27.0-33.0) pg 31.4 MCHC (32.0-36.0) % 33.6 RDW (11.8-14.1) % 12.3 Plt Count (130-400) 10^3/uL 277 MPV (8.0-11.0) fL 11.1 H Immature Gran % 0.8 Neutrophils % 69.8 Lymphocytes % 17.6 Monocytes % 9.2 Eosinophils % 1.9 Basophils % 0.7 Nucleated RBC % (0.0-0.3) % 0.0 Absolute Neutrophils (1.2-6.7) 10^3/uL 9.63 H Absolute Lymphocytes (1.2-3.4) 10^3/uL 2.43 Absolute Monocytes (0.1-0.8) 10^3/uL 1.27 H Absolute Eosinophils (0.0-0.7) 10^3/uL 0.26 Absolute Basophils (0.0-0.2) 10^3/uL 0.10 Sodium (136-145) mmol/L 141 Potassium (3.5-5.1) mmol/L 4.1 Chloride (98-107) mmol/L 105 Carbon Dioxide (21.0-32.0) mmol/L 26.0 Anion Gap (3-11) mmol/L 10.0 BUN (7-18) mg/dL 22 H Creatinine (0.70-1.30) mg/dL 1.1 Est GFR (CKD-EPI 2020) (mL/min/1.73m2) 70.01 Glucose (74-106) mg/dL 257 H Calcium (8.5-10.1) mg/dL 9.3 Total Bilirubin (0.2-1.0) mg/dL 0.5 AST (15-37) U/L 12 L ALT (16-63) U/L 30 Alkaline Phosphatase (46-116) U/L 95 Total Protein (6.4-8.2) g/dL 7.5 Albumin (3.4-5.0) g/dL 3.7 HPI General Mode of arrival: ambulatory . Date/Time Provider Initiated Documentation: 09/08/22 16:07 . Limitations to Documentation: no limitations . Information obtained by: patient, RN notes reviewed and old records reviewed . HPI Narrative: 77-year-old male presents to the ER with chief complaint of an abscess to his tailbone which he reports in it for approximately 1 to 2 months. He reports over the last 3 days after sitting on a heating pad he has noticed some drainage. He reports tenderness with sitting. Denies any fever body aches chills nausea vomiting or any other associated symptoms. He has a past medical history of spinal stenosis, pancreatic disorder, hypothyroidism hyperlipidemia, hypertension type 2 diabetes. Related Data Home Medications Medication Instructions Recorded Confirmed levothyroxine 150 mcg tablet 150 mcg PO DAILY 11/15/16 09/08/22 (Synthroid) lisinopril 40 mg tablet 40 mg PO DAILY 11/15/16 09/08/22 metformin 1,000 mg tablet 1,000 mg PO BID 11/15/16 09/08/22 (Glucophage) liraglutide 0.6 mg/0.1 mL (18 mg/3 18 mg subcut DAILY 05/17/21 09/08/22 mL) subcutaneous pen injector (Victoza 3-Nicanor) atorvastatin 40 mg tablet 40 mg PO DAILY 09/06/21 09/08/22 empagliflozin 25 mg tablet 25 mg PO DAILY 09/06/21 09/08/22 (Jardiance) hydrocodone 5 mg-acetaminophen 325 1 tab PO BID PRN 09/06/21 09/08/22 mg tablet ibuprofen 800 mg tablet 800 mg PO TID 09/06/21 09/08/22 clindamycin HCl 150 mg capsule 450 mg PO TID 7 days #63 caps 09/08/22 insulin detemir U-100 100 unit/mL device subcut 09/08/22 09/08/22 (3 mL) subcutaneous pen (Levemir FlexTouch U-100 Insulin) Previous Rx's Medication Instructions Recorded clindamycin HCl 150 mg capsule 450 mg PO TID 7 days #63 caps 09/08/22 Allergies Allergy/AdvReac Type Severity Reaction Status Date / Time No Known Drug Allergies Allergy Verified 09/08/22 16:15 General Stated Complaint: Cellulitis SHAHAB: 4 Review of Systems All systems reviewed & are unremarkable except as noted in HPI and below Integumentary/Breasts Skin/Breast: Reports as per HPI and Reports skin swelling PFSH All Active Problems (Updated 09/08/22 @ 19:19 by Maria Alejandra Dempsey NP) Abscess, gluteal, left (Acute) Spinal stenosis (Acute) Tobacco use disorder (Acute) Umbilical hernia (Acute) Obesity (Chronic) Pancreatic disorder (Acute) Fatty liver (Acute) Hypothyroidism (Chronic) Hyperlipidemia (Acute) Hypertension (Chronic) Diabetes mellitus type 2, uncontrolled (Acute) Seborrheic keratoses (Acute) Hip joint pain (Acute) Abnormal EKG (Acute) Back pain with left-sided sciatica (Acute) Fracture of metacarpal neck of left hand, closed (Acute 07/02/19) Medical History Adenomatous colon polyp Estee grade dysplasia 2017 Surgical History Colonoscopy - IV Sedation (01/08/17) Tonsillectomy Social History Smoking/Tobacco Use Status: Current every day Tobacco Type: cigarettes Smoking risk assessment performed?: Yes Alcohol Intake: current Alcohol Intake frequency: 0-2 drinks per day Alcohol type: beer Drug use: Never Substance use type: does not use Do you feel safe at home: Yes Do you feel safe in your relationship?: Yes Additional Social history: lives alone Exam Back/Spine/Pelvis Back/spine/pelvis image: 1. Approximately 2 cm necrotic appearing abscess/ulcer with surrounding dusky tissue, erythema and induration. 2. An additional smaller area of erythema. 3. Erythema Course Vital Signs Vital signs: Vital Signs Temperature 37.0 C 09/08/22 16:10 Pulse 86 09/08/22 16:10 Respiratory Rate 16 09/08/22 16:10 Blood Pressure 127/71 09/08/22 16:10 Pulse Oximetry 98 09/08/22 16:10 Temperature 37.0 C 09/08/22 16:10 Temperature Source Skin 09/08/22 16:10 Pulse 86 09/08/22 16:10 Respiratory Rate 16 09/08/22 16:10 Blood Pressure 127/71 09/08/22 16:10 Pulse Oximetry 98 09/08/22 16:10 Oxygen Delivery Method Room Air 09/08/22 16:10 Oxygen Flow Rate 0 09/08/22 16:10 Pain Level 8 09/08/22 16:10 Comment 09/08/22 16:10 Procedures Abscess I/D Site: Emily-rectal (left gluteal) Side (if applicable): Left Sedation/analgesia: None Local Anesthetic: Lidocaine 1% and With Epi Amount of anesthesia used (mL): 2 Amount of fluid expressed (mL): 3 Irrigation: Yes Packing used?: Plain Complications: Other (None)
--- NOTE | 2022-09-08 16:30 | DI.CT_ITS ---
Exam(s) CT PELVIC W EXAM: CT PELVIC W CLINICAL HISTORY: Eval Pilonidal cyst (Decubitus abscess). TECHNIQUE: Imaging Protocol: Axial computed tomography images with coronal and sagittal reformatted images were created and reviewed. CONTRAST MATERIAL: Intravenous: Omnipaque 350 Contrast volume:100 cc Oral: no COMPARISON: CT CT ABDOMEN WO/W from 09/01/2019 FINDINGS: Bladder: Symmetric distention, no gross wall thickening. Bowel: No obstruction or bowel wall thickening. Peritoneal cavity: No ascites, collection or mesenteric inflammatory response. Atherosclerotic changes of the aorta and iliac arteries. Prostate within normal limits in size. Bones: Severe degenerative changes and scoliosis of the lower lumbar spine.. Severe degenerative oc nges of the left hip with multiple subchondral cysts on both sides of the joint. Soft tissues: Small abscess containing air in the left gluteal fold medially measuring 2.9 x 1.1 cm. Adjacent skin and subcutaneous fat infiltration.. IMPRESSION: Small subcutaneous abscess in the medial left gluteal fold. RADIATION DOSE DELIVERED: Total DLP DATA REPOSITORY: All CT scans at this facility are submitted to the National Radiology Data Registry (NRDR) Dose Index Registry (DIR) with the [employer] (ACR). RADIATION OPTIMIZATION: All CT scans at this facility use at least one of these dose optimization te chniques: automated exposure control; mA and/or kV adjustment per patient size (includes targeted exa ms where dose is matched to clinical indication); or iterative reconstruction.
[2022-09-08] MEDS: Lidocaine/Epinephri/Tetracaine Topical Gel 3 ML TP (16:47)
[2022-09-08 16:52] LABS: Abs Immature Grans 0.11 10^3/uL (0.0-0.06); Absolute Eosinophil Count 0.26 10^3/uL (0.0-0.7); Absolute Lymphocyte Count 2.43 10^3/uL (1.2-3.4); Absolute Monocyte Count 1.27 10^3/uL (0.1-0.8); Basophils % 0.7; Eosinophils % 1.9; HGB 15.8 g/dL (13.5-17.5); Immature Grans % 0.8; Lymphocytes % 17.6; MCH 31.4 pg (27.0-33.0); MCHC 33.6 % (32.0-36.0); MCV 93 fL (80-95); MPV 11.1 fL (8.0-11.0); Monocytes % 9.2; Neutrophils % 69.8; Platelet Count 277 10^3/uL (130-400); RBC 5.03 10^6/uL (4.36-5.78); RDW 12.3 % (11.8-14.1); RDW-SD 42.6 fL
[2022-09-08 16:53] LABS: Absolute Neutrophil Count 9.63 10^3/uL (1.2-6.7)
[2022-09-08 17:05] LABS: ALT 30 U/L (16-63); AST 12 U/L (15-37); Albumin 3.7 g/dL (3.4-5.0); Alkaline Phosphatase 95 U/L (46-116); BUN 22 mg/dL (7-18); Bilirubin, Total 0.5 mg/dL (0.2-1.0); CREATININE 1.1 mg/dL (0.70-1.30); Calcium 9.3 mg/dL (8.5-10.1); Chloride 105 mmol/L (98-107); Estimated GFR 70.01 (mL/min/1.73m2); Glucose 257 mg/dL (74-106); Potassium 4.1 mmol/L (3.5-5.1); Sodium 141 mmol/L (136-145); Total Protein 7.5 g/dL (6.4-8.2)
[2022-09-08] MEDS: Normal Saline Flush 10 ML SYR IVP (17:49)
[2022-09-08] MEDS: Omnipaque 350 MG/ML 100 ML BTL IJ (17:51)
[2022-09-08] MEDS: CLINDAMYCIN 600 MG/50 ML BAG 100 MG IVPB (18:08)
--- NOTE | 2022-09-08 18:36 | DI.VRAD_ITS ---
PROCEDURE INFORMATION: Exam: CT Pelvis With Contrast Exam date and time: 09/08/2022 5:55 PM Age: 77 years old Clinical indication: Other: Eval pilonidal cyst (decubitus abscess); Additional info: Cyst located on posterior upper buttocks TECHNIQUE: Imaging protocol: Computed tomography of the pelvis with contrast. Contrast material: OMNIPAQUE 350; Contrast volume: 100 ml; Contrast route: INTRAVENOUS (IV); COMPARISON: CT ABDOMEN, PELVIS 07/02/2019 10:01 AM FINDINGS: Stomach and bowel: Visualized small bowel and colon are unremarkable. Appendix: No evidence of appendicitis. Intraperitoneal space: Unremarkable. No free air. No significant fluid collection. Lymph nodes: Unremarkable. No enlarged lymph nodes. Urinary bladder: Normal. No mass. Reproductive: Normal as visualized. Bones/joints: Degenerative changes and levoscoliosis in the visualized lower lumbar spine. Severe left hip degenerative changes No acute fracture. No dislocation. Soft tissues: Locule containing fluid and gas in the medial left gluteal fold axial image 46 measuring 2.9 by 1.1 cm. Mild skin thickening and subcutaneous infiltration Left renal cyst and additional indeterminate hypodensities IMPRESSION: Medial left gluteal/perianal abscess as described Dictated and Authenticated by: Daniel Borjas MD. Ordering:VERO Bess MD
[2022-09-08 19:28] VITALS: BP 132/78; PULSE 102; RESP 18; O2SAT 99
[2022-09-08 19:32] VITALS: BP 124/75; PULSE 76; RESP 16; TEMP 37
== END 2022-09-08 19:31 | disposition home or self-care (01) ==
PROVIDERS: Emergency Provider Registered Nurse Emergency; PCP Family Medicine
DX: L02.31 Cutaneous abscess of buttock (principal); D72.829 Elevated white blood cell count, unspecified; F17.210 Nicotine dependence, cigarettes, uncomplicated
CPT/HCPCS: 10060; 36415; 80053; 87077; 96361; 96365; 99283; 72193; 85025; 87070; 87075; 87186; 87205; J3490

== ENCOUNTER → 2022-09-11 07:36 | Outpatient (BNVA) | payer MEDICARE, SELFPAY | PROVIDERS: PCP Family Medicine; Referring Provider Family Medicine; Visit Provider Surgery | DX: L02.31 Cutaneous abscess of buttock (principal) | CPT/HCPCS: 11042; 99213 ==

== ENCOUNTER 2022-09-13 15:33 | Outpatient (REF) | payer MEDICARE, SELFPAY ==
[2022-09-16 09:09] LABS: PSA, Screening 3.6 ng/mL (<=6.5)
== END 2022-09-13 15:34 | disposition home or self-care (01) ==
LOC: NCHCN 15:33
PROVIDERS: PCP Family Medicine; Visit Provider Family Medicine
DX: R63.4 Abnormal weight loss (principal)
CPT/HCPCS: 84153

== ENCOUNTER → 2022-09-16 08:23 | Outpatient (BNVA) | payer MEDICARE, SELFPAY | PROVIDERS: PCP Family Medicine; Referring Provider Family Medicine; Visit Provider Surgery | DX: L02.31 Cutaneous abscess of buttock (principal) | CPT/HCPCS: 97597 ==

== ENCOUNTER → 2022-09-25 09:54 | Outpatient (BNVA) | payer MEDICARE, SELFPAY | PROVIDERS: PCP Family Medicine; Referring Provider Family Medicine; Visit Provider Surgery | DX: L02.31 Cutaneous abscess of buttock (principal) | CPT/HCPCS: 11042 ==

== ENCOUNTER 2022-10-09 02:48 | Outpatient (CLI) | payer MEDICARE, SELFPAY ==
--- NOTE | 2022-10-09 | DI.CT_ITS ---
Exam(s) CT CHEST/ABD W EXAM: CT CHEST/ABD W CLINICAL HISTORY: RAPID WT LOSS, R63.4, ? CANCER, ? DUE TO DIABETIC MEDS. TECHNIQUE: Imaging Protocol: Axial computed tomography images with coronal and sagittal reformatted images were created and reviewed CONTRAST MATERIAL: Intravenous: Omnipaque 350 Contrast volume:100 ml Oral: Yes. Oral contrast was administered for bowel opacification. COMPARISON: CT CT_ABDOMEN, PELVIS from 07/02/[address] PELVIC W from 09/08/2022 FINDINGS: Please note that this CT scan was of the chest and abdomen but not the pelvis. I note that recent CT scan of 09/08/2022 was of the pelvis. CHEST: LUNGS: There are no infiltrates nor pleural effusions. No ominous pulmonary nodules. No findings in the trachea and mainstem bronchi. No bronchiectasis.. MEDIASTINUM: There is no hilar nor mediastinal adenopathy. CARDIAC: Heart size is normal. There is no pericardial effusion.Caliber of the thoracic aorta is wit hin normal limits. OSSEOUS: No significant osseous lesions.No fractures.. ABDOMEN: There is no ascites. LIVER: There is a 3 by 2.5 cm lesion in the posterior aspect of the right hepatic lobe which does not density units of a typical cyst and may represent more concerning pathology, although cannot exclude that this may represent a benign hemangioma as there was a rapidly enhancing lesion seen at this lev el on an outside CT scan performed at [facility] on 07/02/2019. Higher up in the right hepatic lobe there is a subtle small 8 millimeter hypodensity, also not a simple cyst. There is also a small 3rd findin g of the right hepatic lobe posterior subcapsular position measuring 7 millimeter. No dilated intrah epatic ducts. No obvious gallbladder pathology. CBD not distended GALLBLADDER/BILIARY: No obvious gallbladder pathology. CBD is not dilated. PANCREAS: There is heavy-prominent parenchymal calcifications throughout the entire length of the mclain creas consistent with chronic pancreatitis. At the pancreatic neck level there is a 1.6 by 1.3 cm hy podensity in the pancreas which was not evident on the June 2019 CT performed at [facility]. SPLEEN: Spleen is not enlarged. There are no intrasplenic lesions. Splenic and portal veins are mccabe nt. ADRENALS: Right adrenal gland unremarkable. Some thickening of the medial limb of the left adrenal g land is noted, slightly more so than previous. Possibly significant. KIDNEYS: Right kidney unremarkable. There is a cyst in the posterior cortex of the left kidney which measures 3 cm x 2.5 cm, slightly increased in size from previous. No solid renal masses. No calcul i nor hydronephrosis.. No cysts evident. ABDOMINAL AORTA: Abdominal aorta is not enlarged. Partially visualized common iliac arteries appears slightly prominent in size, particularly on the right side where the diameter of the partially visua lized right common iliac artery is 1.9 cm. LYMPH NODES: There is no retroperitoneal nor paraaortic adenopathy. ABDOMINAL WALL: No evidence of significant anterior abdominal wall nor inguinal hernia. Subcutaneous increased density anterior right abdominal wall probably subcutaneous injection site GI: There is no evidence of bowel obstruction.Partially visualized appendix in the upper right iliac fossa appears unremarkable. No bowel obstruction. IMPRESSION: 1. No significant intrathoracic findings. 2. Multilevel calcification within the pancreatic parenchyma consistent with chronic pancreatitis. N o obvious acute pancreatitis. However, there is an area of hypodensity in the pancreatic neck region which was not previously present, this measuring 16 x 13 millimeters, located between 2 large calcif ic densities in the gland. There is possibly that this may represent a new onset cystic neoplasm or possibly just dilatation of the duct at this level, more so than previous. Nevertheless, this should be studied with contrast infused MRI. This study should be performed with pancreatic/liver hemangio ma protocol, given the above described 3 x 2.5 cm lesion in the right hepatic lobe which may indeed b e a possible benign hemangioma, given its presence on outside CT scan of June 2019 ([facility]). 3. Other findings as above. 4. There is no ascites. No bowel obstruction. RADIATION DOSE DELIVERED: 988.69mGy.cm Total DLP DATA REPOSITORY: All CT scans at this facility are submitted to the National Radiology Data Registry (NRDR) Dose Index Registry (DIR) with the [employer] (ACR). RADIATION OPTIMIZATION: All CT scans at this facility use at least one of these dose optimization te chniques: automated exposure control; mA and/or kV adjustment per patient size (includes targeted exa ms where dose is matched to clinical indication); or iterative reconstruction.
[2022-10-09] MEDS: Barium Sulfate 2% W/V-Berry Smoothie 450 ML BTL PO (09:26)
[2022-10-09] MEDS: Omnipaque 350 MG/ML 500 ML BTL-Imaging package IJ (11:17)
== END 2022-10-09 03:08 ==
PROVIDERS: PCP Family Medicine; Visit Provider Family Medicine
DX: R63.4 Abnormal weight loss (principal); K76.89 Other specified diseases of liver; K86.1 Other chronic pancreatitis; K86.89 Other specified diseases of pancreas; N28.1 Cyst of kidney, acquired; E11.9 Type 2 diabetes mellitus without complications; Z79.84 Long term (current) use of oral hypoglycemic drugs
CPT/HCPCS: 71260; 74160

== ENCOUNTER → 2022-10-14 09:29 | Outpatient (BNVA) | payer MEDICARE, SELFPAY | PROVIDERS: PCP Family Medicine; Referring Provider Family Medicine; Visit Provider Surgery | DX: L02.31 Cutaneous abscess of buttock (principal) | CPT/HCPCS: 99212 ==

== ENCOUNTER 2023-01-30 16:34 | Outpatient (REF) | payer MEDICARE, SELFPAY ==
[2023-01-30 16:43] LABS: Anion Gap 9.3 mmol/L (3-11); BUN 16 mg/dL (7-18); CO2 26.7 mmol/L (21.0-32.0); CREATININE 0.9 mg/dL (0.70-1.30); Calcium 9.3 mg/dL (8.5-10.1); Chloride 104 mmol/L (98-107); Estimated GFR 89.07 (mL/min/1.73m2); Glucose 254 mg/dL (74-106); Potassium 4.4 mmol/L (3.5-5.1); Sodium 140 mmol/L (136-145); TSH (W/Ref FT4) 0.89 uIU/mL (0.36-3.74)
[2023-01-30 17:09] LABS: COMMENT (LAB VIEW ONLY) 33.47 mg/dL; Microalb ug/mg Crea 24.2 ug/mg Cr
== END 2023-01-30 16:35 | disposition home or self-care (01) ==
LOC: NCHCN 16:34
PROVIDERS: PCP Family Medicine; Visit Provider Family Medicine
DX: I10 Essential (primary) hypertension (principal); E03.9 Hypothyroidism, unspecified
CPT/HCPCS: 80048; 82043; 82570; 84443

== ENCOUNTER 2023-02-05 01:28 | Outpatient (CLI) | payer MEDICARE, SELFPAY ==
--- NOTE | 2023-02-05 09:15 | DI.MRI_ITS ---
Exam(s) MR ABDOMEN WO/W EXAM: MR ABDOMEN WO/W CLINICAL HISTORY: ABNL ABD IMAGING, R93.5; LIVER MASS, K76.89; PANCREATIC LESION, K86.9 TECHNIQUE: Multiplanar multisequence MRI of the Abdomen was performed. CONTRAST MATERIAL: IV Contrast: 18 mL of Dotarem contrast administered. COMPARISON: US ABDOMEN ULTRASOUND (P) from 01/26/[address] ABDOMEN WO/W from 09/01/[address] CHEST/ABD W from 10/09/2022 FINDINGS: Liver: There is a 3.1 x 2.6 cm T1 hypointense T2 hyperintense lesion in the posterior segment of the right lobe of the liver. There is a similar characterized 5 mm lesion in the subcapsular position mo re inferiorly. There is a similarly characterize lesion in the posterior segment of the right lobe i n the dome of the liver measuring 7 mm. The 2 smaller lesion show complete enhancement on the postco ntrast images. There is persistent peripheral enhancement of the largest lesion. Though the largest lesion does not completely enhance at the 15 minutes postcontrast arya. Pancreas: There is marked atrophy of the pancreas with dilatation of the pancreatic duct throughout i ts entire length. Hypointense areas are seen within the pancreas consistent with pancreatic calcific ations. No mass is seen. Gallbladder and Bile Ducts: Unremarkable. There is no biliary ductal dilatation. Adrenals: Unremarkable. Kidneys: There are bilateral simple renal cysts which appears stable. No follow-up is recommended. Spleen: Unremarkable. Bowel: Unremarkable. Aorta: Unremarkable. Soft Tissues: Unremarkable. Bone: Degenerative changes are seen in the lumbar spine with central spinal canal stenosis at L3-L4. There is a marked left convex scoliosis of the lumbar spine. Lymph Nodes: Unremarkable. IMPRESSION: 1. Enhancing hepatic lesions as described above. The 2 smaller lesions show complete enhancement fol lowing contrast administration suggestive of hepatic hemangiomas. The largest lesion measures 3.1 x 2.6 cm and is located in the posterior segment of the right lobe of the liver. It does show progress jcarlos peripheral enhancement though it never completely enhances even at the 15 minutes post-injection arya. These likely reflect hepatic hemangiomas. A follow-up examination in 6 months is recommended for re-evaluation. 2. Marked atrophy of the pancreas with dilatation of the pancreatic duct with numerous pancreatic tank cifications consistent with chronic pancreatitis. No mass is seen. DATA REPOSITORY:
[2023-02-05] MEDS: Normal Saline - Diluent 50 ML VIAL 25 ML IJ (10:45)
[2023-02-05] MEDS: Gadoterate meglumine 20 ML VIAL 18 ML IVP (10:45)
== END 2023-02-05 01:48 ==
LOC: DI 01:28
PROVIDERS: PCP Family Medicine; Visit Provider Family Medicine
DX: K76.89 Other specified diseases of liver (principal); K86.89 Other specified diseases of pancreas; R93.5 Abnormal findings on diagnostic imaging of other abdominal regions, including retroperitoneum; N28.1 Cyst of kidney, acquired; K86.1 Other chronic pancreatitis
CPT/HCPCS: 74183

== ENCOUNTER 2023-05-23 11:47 | Outpatient (CLI) | payer MEDICARE, SELFPAY ==
--- NOTE | 2023-05-23 10:30 | DI.RAD_ITS ---
Exam(s) XR HIP LT COMPLETE AP PELVIS EXAM: XR HIP LT COMPLETE AP PELVIS CLINICAL HISTORY: LEFT HIP PAIN. TECHNIQUE: 2D digital imaging was performed. COMPARISON: CR,XR XR HIP LT COMPLETE AP PELVIS from 05/21/2021 FINDINGS: 3 views No evidence of pelvic nor hip fracture. However, there is been significant progression of osteoarthr itic degenerative changes in the left hip when compared to 3 years ago. There is now advanced narrow ing of the hip joint space and multiple degenerative subarticular cysts on both sides the joint. No prominent osteophytes. Opposite-right hip remains unremarkable. 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 DATA REPOSITORY: RADIATION DOSE DELIVERED:
== END 2023-05-23 11:48 | disposition home or self-care (01) ==
LOC: DIORS 11:47
PROVIDERS: PCP Family Medicine; Referring Provider Family Medicine; Visit Provider Student in an Organized Health Care Education/Training Program
DX: M16.12 Unilateral primary osteoarthritis, left hip
CPT/HCPCS: 99213; 73502

== ENCOUNTER → 2023-07-24 12:47 | Outpatient (BNVA) | payer MEDICARE, SELFPAY | PROVIDERS: PCP Family Medicine; Referring Provider Family Medicine; Visit Provider Physician Assistant | DX: Z01.818 Encounter for other preprocedural examination (principal); M16.12 Unilateral primary osteoarthritis, left hip ==

== ENCOUNTER 2023-07-24 14:41 | Outpatient (CLI) | payer MEDICARE, SELFPAY ==
[2023-07-24 14:07] LABS: HCT 44.2 % (40.0-50.0); HGB 15.4 g/dL (13.5-17.5); MCH 32.2 pg (27.0-33.0); MCHC 34.8 % (32.0-36.0); MCV 93 fL (80-95); MPV 10.7 fL (8.0-11.0); Platelet Count 297 10^3/uL (130-400); RBC 4.78 10^6/uL (4.36-5.78); RDW 12.7 % (11.8-14.1); RDW-SD 43.8 fL; WBC 9.39 10^3/uL (4.4-10.8)
[2023-07-24 15:16] LABS: Anion Gap 8.8 mmol/L (3-11); BUN 9 mg/dL (7-18); CO2 27.2 mmol/L (21.0-32.0); CREATININE 0.7 mg/dL (0.70-1.30); Calcium 8.9 mg/dL (8.5-10.1); Chloride 107 mmol/L (98-107); Estimated GFR 95.49 (mL/min/1.73m2); Glucose 85 mg/dL (74-106); Potassium 3.3 mmol/L (3.5-5.1); Sodium 143 mmol/L (136-145)
[2023-07-25 18:09] LABS: Fructosamine 318 mcmol/L (200 - 285)
== END 2023-07-24 14:42 | disposition home or self-care (01) ==
LOC: LBO 14:41
PROVIDERS: PCP Family Medicine; Visit Provider Student in an Organized Health Care Education/Training Program
DX: M16.12 Unilateral primary osteoarthritis, left hip (principal); M25.552 Pain in left hip; Z01.818 Encounter for other preprocedural examination; Z01.812 Encounter for preprocedural laboratory examination; E11.9 Type 2 diabetes mellitus without complications; I10 Essential (primary) hypertension
CPT/HCPCS: 36415; 80048; 85027; 82985; 83036

== ENCOUNTER 2023-08-05 08:10 | Day surgery (SDC) | payer MEDICARE, SELFPAY ==
[2023-08-05] VITALS (9 sets, daily range): BP systolic 111–166; BP diastolic 52–85; PULSE 52–57; RESP 16–18; TEMP 36–36.7; O2SAT 96–100; BMI 26.5
--- NOTE | 2023-08-05 07:24 | W.PM.DS.N ---
Date of service: 08/05/23 Time of Service: 07:27 DS: Diagnosis Discharge Diagnosis (1) Degenerative joint disease of left hip: Status: Chronic Discharge Plan Disposition Patient Disposition: Home Condition: Good Discharge Details Reason For Visit: Left hip DJD Attending Provider: Chang Vazquez Primary Care Provider: Delia Holden Home Meds and New Rx's Prescriptions: New celecoxib [Celebrex] 200 mg capsule 200 mg PO BID PRNQty: 60 0RF Rx Instructions: Take one tablet twice daily for pain and inflammation aspirin 81 mg tablet,delayed release (DR/EC) 81 mg PO BID 30 Days Qty: 60 0RF acetaminophen 500 mg tablet 1,000 mg PO Q8H PRN Qty: 90 0RF Rx Instructions: Take two tablets up to every 8 hours as needed for pain pantoprazole 40 mg tablet,delayed release (DR/EC) 40 mg PO DAILY Qty: 14 0RF docusate sodium [Colace] 100 mg capsule 100 mg PO BID Qty: 30 0RF oxycodone 5 mg tablet 5 mg PO Q6H PRNQty: 12 0RF Rx Instructions: Take one tablet up to every 6 hours as needed for severe postoperative pain Continued [id number]-[id number]-EI 3.5-10,000-1 mg/mL-unit/mL-% drops,suspension 4 drp otic (ear) BID 10 Days Qty: 10 1RF Rx Instructions: both ears metformin [Glucophage] 1,000 MG tablet 1,000 mg PO BID levothyroxine [Synthroid] 150 MCG tablet 150 mcg PO DAILY lisinopril 40 MG tablet 40 mg PO DAILY atorvastatin 40 mg tablet 40 mg PO DAILY Jardiance 25 mg tablet 25 mg PO DAILY Victoza 3-Nicanor 0.6 mg/0.1 mL (18 mg/3 mL) pen injector 18 mg SUBCUT DAILY Levemir FlexTouch U100 Insulin 100 unit/mL (3 mL) insulin pen 60 device SUBCUT QAM Discontinued ibuprofen 800 mg tablet 800 mg PO TID hydrocodone-acetaminophen 5-325 mg tablet 1 tab PO BID PRN Discharge Instructions Additional Instructions: Total Hip Discharge Instructions Activity: The most important activity is to walk. You should try to take short walks a few times a day. You have no restrictions on movement or positioning, but do not try to force what you do. You will find some stiffness and weakness with hip flexion (lifting your knee). Do not try to strengthen this too early, continue to practice walking and stairs and this will come. - Outpatient physical therapy can be helpful to help return you to a normal gait and improve your flexibility and strength. This can start around 2 weeks. For some patients, it?s not necessary. Usually this is determined at the time of discharge or at the first post-operative visit. - You should wear the TRINITY hose on both legs for 2 weeks. Dressing: Keep the surgical dressing in place for at least one week. After the first week it may be removed and replace with light gauze and tape or nothing. It may get wet after 3 days but avoid soaking the dressing. If it gets wet, just lightly pat dry. It is important to always keep some gauze between skin folds, especially when you are sitting. Spend some time with the wound exposed when you are lying flat as the incision does wrinkle onto itself. Medications: - You should take Tylenol and an anti-inflammatory Celebrex as your primary pain control medications. If the Celebrex is too expensive or not covered, please call the office for another alternative (Advil/Ibuprofen or Naproxen/Aleve). - You have been prescribed a stronger pain medication Oxycodone for breakthrough pain, take as needed as prescribed. - You have also been prescribed a stomach acid reduction agent Pantoprozole to help reduce stomach acid and reflux. - You will be taking Aspirin 81mg twice a day for DVT prevention unless instructed otherwise. - If you have constipation you should take Colace (which has been prescribed) or Miralax (which is available [id number]). It takes most people 3-4 days to have a bowel movement. Follow-up: 2 weeks If you have any acute concerns or questions, please do not hesitate to contact the office at [phone]. You may contact Dr. Vazquez with any questions after hours through the hospital at [phone] or on his cell phone at [phone]. Referrals: Chang Vazquez MD [ [facility] STAFF PHYSICIAN] - Equipment/Supplies: Walker Activity:: Activity as Tolerated Remove Dressings/Wound Care:: Do Not Remove Shower/Bathe:: Cover Diet:: As Tolerated DS: Summary Time Spent with Patient providing and/or coordinating discharge services: Less than 30 minutes Status at Discharge Functional status at discharge: uses cane/walker Overall status at discharge: patient is back to baseline Mental Status: mental status grossly normal Speech and Movement: speech and movement normal Mood: congruent mood Affect: normal affect Exam Psych Mental Status: mental status grossly normal Speech and Movement: speech and movement normal Mood: congruent mood Affect: normal affect DS: Data Vitals/I&O Vitals and I&O: Intake & Output 08/04/23 08/04/23 08/05/23 11:59 23:59 11:59 Weight 185 lb PFS All Active Problems Degenerative joint disease of left hip (Chronic) 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 (Acute) Liver mass (Acute) Spinal stenosis (Acute) Tobacco use disorder (Acute) Umbilical hernia (Acute) Obesity (Chronic) Pancreatic disorder (Acute) Fatty liver (Acute) Hypothyroidism (Chronic) Hyperlipidemia (Acute) Hypertension (Chronic) Diabetes mellitus type 2, uncontrolled (Acute) Seborrheic keratoses (Acute) Hip joint pain (Acute) Abnormal EKG (Acute) Back pain with left-sided sciatica (Acute) Fracture of metacarpal neck of left hand, closed (Acute 07/02/19) Medical History Adenomatous colon polyp Estee grade dysplasia 2017 Ear drainage Family history of prostate cancer in father (03/26/18) Hydrocele (03/26/18) Osteoarthritis Sensorineural hearing loss, bilateral (09/20/13) Sessile colonic polyp (01/08/17) Surgical History Colonoscopy - IV Sedation (01/08/17) History of carpal tunnel release of both wrists History of spinal surgery (~10/03/21) Debi Perry for spinal stenosis Tonsillectomy Social History Smoking/Tobacco Use Status: Former Tobacco Use Quit Date: 07/11/23 Smoking risk assessment performed?: Yes Alcohol Intake: current Alcohol Intake frequency: a few times a month Alcohol type: beer Drug use: Never Substance use type: does not use Housing: house Current gender identity: male Do you feel safe at home: Yes Do you feel safe in your relationship?: Yes Time Spent with Patient Time Spent with Patient: <45 minutes Time was spent: ordering medications,tests, procedures and care coordination
--- NOTE | 2023-08-05 08:15 | ANES.PREOP_ITS ---
General Info Date of Service Date Performed: 08/05/23 Height: 5 ft 10 in Weight: 83.915 kg Body Mass Index (BMI): 26.5 Surgical Procedure: Operation Date: 08/05/23 11:20 Proposed Procedure Side Surgeon p Hip Total Hip Anterior, ACTIS Left Chang Vazquez MD Meds Allergies and Home Medications Allergies Allergy/AdvReac Type Severity Reaction Status Date / Time No Known Drug Allergies Allergy Verified 08/05/23 08:32 Home Medication Medication Instructions Recorded levothyroxine 150 mcg tablet 150 mcg PO DAILY 11/15/16 (Synthroid) lisinopril 40 mg tablet 40 mg PO DAILY 11/15/16 metformin 1,000 mg tablet 1,000 mg PO BID 11/15/16 (Glucophage) liraglutide 0.6 mg/0.1 mL (18 mg/3 18 mg subcut DAILY 05/17/21 mL) subcutaneous pen injector (Victoza 3-Nicanor) atorvastatin 40 mg tablet 40 mg PO DAILY 09/06/21 empagliflozin 25 mg tablet 25 mg PO DAILY 09/06/21 (Jardiance) insulin detemir U-100 100 unit/mL 60 device subcut QAM 09/08/22 (3 mL) subcutaneous pen (Levemir FlexTouch U-100 Insulin) qfvvryam-jvxsawzmv-lwlritgfi 3.5 4 drp otic (ear) BID 10 days #10 mL 04/10/23 mg-10,000 unit/mL-1 % ear drops,susp acetaminophen 500 mg tablet 1,000 mg PO Q8H PRN pain #90 tabs 08/05/23 aspirin 81 mg tablet,delayed 81 mg PO BID 30 days #60 tabs 08/05/23 release celecoxib 200 mg capsule (Celebrex) 200 mg PO BID PRN #60 caps 08/05/23 docusate sodium 100 mg capsule 100 mg PO BID #30 caps 08/05/23 (Colace) oxycodone 5 mg tablet 5 mg PO Q6H PRN #12 tabs 08/05/23 pantoprazole 40 mg tablet,delayed 40 mg PO DAILY #14 tabs 08/05/23 release Current Visit Medications: Current Medications Generic Name Dose Route Start Last Admin Trade Name Freq PRN Reason Stop Dose Admin Acetaminophen 1,000 mg 08/05/23 06:00 Acetaminophen 500 Mg Tab PO 08/05/23 16:00 PREOP CARLOS Celecoxib 400 mg 08/05/23 06:00 Celecoxib 200 Mg Cap PO 08/05/23 16:00 PREOP CARLOS Docusate Sodium 100 mg 08/05/23 07:23 Docusate Sodium 100 Mg Cap PO 09/04/23 07:22 BID PRN PRN Constipation Hydromorphone HCl 0.5 mg 08/05/23 07:23 Hydromorphone 2 Mg/Ml Syr IVP 09/04/23 07:22 Q2H PRN PRN Tranexamic Acid 1,000 mg/ 60 mls @ 360 mls/hr 08/05/23 06:00 Sodium Chloride IV 08/05/23 16:00 PREOP CARLOS Ringer's Solution 1,000 mls @ 80 mls/hr 08/05/23 06:00 IV 09/03/23 23:59 INFUSION CARLOS Cefazolin Sodium/Dextrose 2 gm in 50 mls @ 100 mls/hr 08/05/23 06:00 Ancef Duplex IVPB 08/05/23 16:00 PREOP CARLOS Cefazolin Sodium/Dextrose 1 gm in 50 mls @ 100 mls/hr 08/05/23 08:00 Ancef Duplex IVPB 08/06/23 00:29 Q8H CARLOS IV Miscellaneous Supplies 1 each 08/05/23 06:00 Iv Access IV 09/03/23 23:59 DIRECTED CARLOS Ondansetron HCl 4 mg 08/05/23 07:23 Ondansetron 4 Mg/2 Ml Vial IVP 09/04/23 07:22 Q6H PRN PRN Nausea Oxycodone HCl 0 mg 08/05/23 07:23 Oxycodone 5 Mg Tab PO 09/04/23 07:22 Q3H PRN PRN Pain Sodium Chloride 0 ml 08/05/23 06:00 Normal Saline Flush 10 Ml Syr IV 09/03/23 23:59 PRN PRN Sodium Chloride 0 ml 08/05/23 06:00 Normal Saline 10 Ml Vial IJ 09/03/23 23:59 DIRECTED PRN Sterile Water 0 ml 08/05/23 06:00 Water,Injection,Sterile 10 Ml Vial IJ 09/03/23 23:59 DIRECTED PRN PFSH Active Problems Active Problems: Problem Status Onset Code Degenerative joint disease of left hip M16.12 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 H60.8X3 Liver mass R16.0 Spinal stenosis M48.00 Tobacco use disorder F17.200 Umbilical hernia K42.9 Obesity E66.9 Pancreatic disorder K86.9 Fatty liver K76.0 Hypothyroidism E03.9 Hyperlipidemia E78.5 Hypertension I10 Diabetes mellitus type 2, uncontrolled E11.65 Seborrheic keratoses L82.1 Hip joint pain M25.559 Abnormal EKG R94.31 Back pain with left-sided sciatica M54.32 Fracture of metacarpal neck of left hand, closed 07/02/19 S62.339A Medical History Medical History Adenomatous colon polyp Estee grade dysplasia 2017 Ear drainage Family history of prostate cancer in father (03/26/18) Hydrocele (03/26/18) Osteoarthritis Sensorineural hearing loss, bilateral (09/20/13) Sessile colonic polyp (01/08/17) Surgical History Surgical History Colonoscopy - IV Sedation (01/08/17) History of carpal tunnel release of both wrists History of spinal surgery (~10/03/21) Debi Ta for spinal stenosis Tonsillectomy Tobacco Smoking/Tobacco Use Status: Former Tobacco Use Alcohol Alcohol Intake: current Alcohol intake frequency: a few times a month Alcohol type: beer Substance Use Substance use: Never Substance use type: does not use Vital Signs and Lab Results Vital Signs Most Recent Vital Signs in EMR: Temp Pulse Resp BP Pulse Ox 36.4 C L 57 L 17 166/85 H 100 08/05/23 08:20 08/05/23 08:20 08/05/23 08:20 08/05/23 08:20 08/05/23 08:20 Lab Results Blood Type / Crossmatch: No Data to Display Complete Blood Count: White Blood Count 9.39 10^3/uL (4.4-10.8) 07/24/23 13:57 Red Blood Count 4.78 10^6/uL (4.36-5.78) 07/24/23 13:57 Hemoglobin 15.4 g/dL (13.5-17.5) 07/24/23 13:57 Hematocrit 44.2 % (40.0-50.0) 07/24/23 13:57 Platelet Count 297 10^3/uL (130-400) 07/24/23 13:57 Complete Metabolic Panel: Sodium 143 mmol/L (136-145) 07/24/23 13:57 Potassium 3.3 mmol/L (3.5-5.1) L 07/24/23 13:57 Chloride 107 mmol/L (98-107) 07/24/23 13:57 Carbon Dioxide 27.2 mmol/L (21.0-32.0) 07/24/23 13:57 BUN 9 mg/dL (7-18) 07/24/23 13:57 Creatinine 0.7 mg/dL (0.70-1.30) 07/24/23 13:57 Est GFR (CKD-EPI 2020) 95.49 (mL/min/1.73m2) 07/24/23 13:57 Calcium 8.9 mg/dL (8.5-10.1) 07/24/23 13:57 Glucose 85 mg/dL (74-106) 07/24/23 13:57 Hemoglobin A1c 8.0 % (<5.7) H 07/24/23 13:57 Liver Function Panel: No Data to Display Coagulation Panel: No Data to Display Cardiac Panel: No Data to Display Arterial Blood Gas: No Data to Display Venous Blood Gas: No Data to Display Pancreas Panel: No Data to Display Thyroid Panel: No Data to Display Infectious Disease: No Data to Display Blood Cultures: No Data to Display Toxicology Panel: No Data to Display Imaging and Studies Imaging and Studies Study information below may be from another EMR and interpreted by another provider. Please see original notes in EMR for more complete details. 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 However, this could not be ruled out in this low image quality transthoracic study. Summary: 1. Left ventricle: The cavity size was normal. Wall thickness was increased in a pattern of mild LVH. Systolic function was normal. The estimated ejection fraction was 55-60%. Mild hypokinesis of the basalinferolateral myocardium. Some findings suggest diastolic dysfunction. 2. Left atrium: The atrium was mildly dilated. 3. Right ventricle: The cavity size was normal. Wall thickness was normal. Systolic function was normal. Carotid Artery Summary:: Date of Exam: 12/21/15ex: M : 1945ge: 70 Exam(s) [id number] US:Carotid SYMPTOM/DIAGNOSIS: TIA,645.9,WORD FINDING DIFFICULTY,F80.89, HEADACHES, SMOKER CAROTID ULTRASOUND: There is mild plaque in the right carotid bulb with minimal left carotid plaque identified. There are no elevated velocities. There is bilateral antegrade flow in the vertebrals. SUMMARY: No evidence of significant carotid stenosis. Other Study Summary:: Date of Exam: 06/21/21Sex: M Admission Date: 06/21/21 : 1945 Age: 75 Exam(s) MR LUMBAR SPINE WO EXAM: MR LUMBAR SPINE WO CLINICAL HISTORY: S/P FALL,PROGRESSIVE LT HIP AND BACK PAIN,DOWN LEG,LT S CIATICA,M54.32. TECHNIQUE: Multiplanar multisequence MRI of the Lumbar spine was performed. COMPARISON: MR MRI - LUMBAR SPINE WO CONTRAST from 06/22/2009 FINDINGS: Bones: The last intervertebral disc space is designated the L5/S1 level for the numbering purpose of this examination. The vertebral body heights are well maintained. There is a left convex scoliosis of the lumbar spine. The signal characteristics are unremarkable. Cord: The conus tip ends at the T12 level. It is of normal size and signal intensity. T12-L1: There is a small left paracentral disc herniation. No significant central spinal canal stenosis is seen. There is mild bilateral neural foraminal stenosis. L1-2: No disc herniations or bulges are present. No significant central spinal canal stenosis is seen.There is mild right and moderate left neural foraminal stenosis. L2-3: There is a mild diffuse disc bulge. There are hypertrophic changes of the facets and ligamentum flavum. These all contribute to cause moderately severe central spinal canal stenosis. There is moderate right neural foraminal stenosis. There is moderate left neural foraminal stenosis. L3-4: There is no focal disc herniation. There are hypertrophic changes of the facets. This does cause mild narrowing of the central spinal canal. There is marked right neural foraminal stenosis. Mild left neural foraminal stenosis is present. L4-5: There is a diffuse disc bulge. There are hypertrophic changes of the facets. These all contribute to cause marked narrowing of the central spinal canal. There is marked right neural foraminal stenosis and moderate left neural foraminal stenosis. L5-S1: No focal disc herniation is seen. There are degenerative changes of the facets. No significant central spinal canal stenosis is seen. There is no right neural foraminal stenosis. There is moderate left neural foraminal stenosis. Soft tissues: The visualized SI joints and sacrum are well maintained. The monik jennifer soft tissues are unremarkable. IMPRESSION: Marked multilevel degenerative changes in the lumbar spine resulting in central spinal canal and neural foraminal stenosis. The findings are most marked at the L4-5 disc level. Please see the above discussion for complete details. Anesthesia Assessment and Plan Anesthesia History Personal History: No History of Anesthesia Complications Family History: No Family History of Anesthesia Complications Exercise Tolerance Exercise Tolerance: Metabolic Equivalents>4 Pertinent Negatives Pertinent Negatives: No Symptoms of GERD, No Major Cardiovascular Symptoms or Complaints and No Major Pulmonary Symptoms or Complaints Cardiac & Pulmonary Exam Cardiac Exam: Normal S1/S2 Heart Sounds Pulmonary Exam: Clear Bilateral Breath Sounds Implantable Cardiac Device Does patient have a Pacemaker or an ICD?: No Airway Exam Known Difficult Airway: No Mallampati Class: 1 Mouth Opening: Normal (> 3cm) Thyromental Distance: Less than 3 cm Neck Range of Motion: Full ROM Neck Circumference: Normal Teeth Condition: Generalized Poor Dentition ASA Classification ASA Score: ASA 2 Emergency Case?: No NPO Status NPO Status: NPO Clears >2 hours, Solids >8 hours Anesthesia Plan Resuscitation Status: Full Code Anesthesia Technique: Spinal Anesthesia Airway Planned: Natural Airway Monitors Used: Standard Monitors
[2023-08-05] MEDS: Acetaminophen 500 MG TAB 1000 MG PO (08:40)
[2023-08-05] MEDS: Celecoxib 200 MG CAP 400 MG PO (08:40)
[2023-08-05] MEDS: Lactated Ringers 1,000 ML 80 ML IV (08:50)
[2023-08-05] MEDS: ceFAZolin 2 GM/50 ML BAG IVPB (10:35)
--- NOTE | 2023-08-05 12:00 | W.PM.OP ---
Date of service: 08/05/23 Time of Service: 11:50 Operative Note Operative Note DATE OF PROCEDURE: 08/05/23 PRE-OP DIAGNOSIS: Left Hip Arthritis POST-OP DIAGNOSIS: same PROCEDURE: Left Anterior Total Hip Arthroplasty with Intraoperative Navigation SURGEON: Chang Vazquez VETERINARIAN: Mary Grace White ANESTHESIA TYPE: Spinal Refer to Anesthesia Record ESTIMATED BLOOD LOSS: 150 PATHOLOGY: none sent TOURNIQUET TIME: 0 COMPLICATIONS: None Patient was transported to: PACU Patient's condition: stable Implants: 1. Depuy Eastlake Acetabular Component, 56mm 2. Depuy Acetabular Liner, [id number] 3. Depuy Actis High Collared Femoral Stem, Size 7 4. Depuy Altrx Ceramic Femoral Head, Size 36+5mm Indications: I have seen Bryant in clinic for symptoms of hip arthritis, confirmed with radiographic findings. He has exhausted nonoperative methods and was having significant limitations in daily function and desired better function and less pain. I discussed the technical details of a hip replacement. I explained the risks of the procedure to include, but not limited to, bleeding, infection, pain, stiffness, fracture, damage to nerves and vessels, damage to muscles and tendons, loosening, instability, leg length inequality, need for repeat procedure, blood clot and cardiopulmonary demise. Despite these risks, Bryant elected to proceed. Findings: There was significant signs of arthritis throughout the hip with complete loss of cartilage of the femoral head. Procedure Description: Bryant was greeted in the preoperative holding area where the correct side was identified and marked. The consent was reviewed with the patient and signed. The history and physical was updated. All questions were answered. He was taken back to the operating room. A spinal anesthestic was then administered. The feet were wrapped with cast padding and Coban and then placed into the boot liners and then into the boots. Care was taken to protect the skin and make sure the heels were fully down and the boots were stable. The patient was then positioned onto the HANA table. Both legs were held in a neutral position. SCDs were applied. The patient was then slid down onto a peroneal post. Prophylactic antibiotics in the form of Cefazolin were administered. 1g of Tranxemic Acid was given intravenously within 30 minutes of incision. The left leg was then prepped with Chloraprep and draped in a standard fashion. A second prep with Chloraprep was performed prior to placement of a shower-curtain type drape with Iodine impregnated skin protection. A timeout to confirm correct identity, side and site, procedure, allergies, anesthesia, and medical concerns was performed. An obliquely oriented incision was made starting lateral to the ASIS and running distal over the Tensor Fascia Fabi (TFL) muscle belly toward the fibular head, approximately 10cm. The skin and soft tissue was dissected sharply, through Miky?s fascia, and to the fascia of the TFL. With the fascia and superior border of the IT band identified, the fascia was incised with a new knife just above any perforators from the IT band. The TFL muscle belly was bluntly dissected away from the fascia and moved laterally. The fat between TFL and rectus was identified to ensure the dissection was not within the TFL. Blunt dissection created space between abductors and the capsule and retractor was placed over the lateral femoral neck. The fibers of the rectus femoris tendon were identified and these were freed from the anterior capsule. A second cobra retractor was placed around the medial femoral neck. The TFL was further retracted laterally to show the deep fascia. Careful dissection through this layer identified three main crossing vessels of the lateral femoral circumflex. These were cauterized in multiple locations and then cut without any noticeable bleeding. The TFL was further released bluntly from the deep fascia to expose anterior hip capsule and fat The Yehuda orthopaedic retractor was then placed beneath the TFL and against sartorius and medial soft tissues to protect and retract the soft tissues. A T-capsulotomy was then performed starting at the superior lateral acetabulum and moving distally to the intertrochanteric ridge. These capsular flaps were tagged with a No. 1 Ethibond and elevated from within. The capsular flaps were released to the shoulder of the lateral neck and to the lesser trochanter to give excellent visualization of the proximal femur. A neck osteotomy was performed using an oscillating saw based on preoperative templates. This cut started in the shoulder and of the lateral neck and exited medially. The saw was at all times directed medially to avoid injury to the greater trochanter. Gross traction was applied to the leg and the osteotomy opened. The femoral head was removed with a corkscrew, making sure to protect the TFL on its exit. Traction was released after head removal. This was measured on the back table to determine the starting reamer size. Portions of the rectus obscuring visualization were minimally elevated off the superior acetabulum. An anterior retractor was placed over the anterior wall between capsule and labrum and attached to the Gripper retraction system. The femur was rotated to 90 degrees and medial capsule was fully released until the lesser trochanter was palpable and visible; the femur was returned to 30 degrees. A posterior retractor was placed similarly between capsule and labrum. This provided excellent visualization. The contents of the cotyloid fossa were removed with electrocautery and the labrum was removed with a knife. There was a notable floor osteophyte. There was significant chondromalacia of the superior acetabulum. Acetabular reaming began with a 52mm reamer. This first reaming was directed anterior to posterior and medial to get down to the true floor. This was inspected and reamed until the true floor was reached. The anterior retractor was then released and entry and exit was provided by traction on the capsular flaps. I then reamed sequentially up to a 56mm reamer where good fit was obtained. The larger reamers were oriented based on anatomical reference of the anterior and lateral feliciano to ensure proper abduction and anteversion. Positioning and size was confirmed with the fluoroscopy. A 56mm Depuy Eastlake acetabular component was selected. The acetabulum was reamed around the periphery with the selected acetabular size to prevent a rim fit. The deep tissues were irrigated. The acetabular component was then impacted in a position of about 40-45 degrees of abduction and 15-20 degrees of anteversion, using the patient?s anatomy as the ultimate landmark. Fluoroscopy was used to confirm this. There was excellent weld fitter of the acetabular component and the inserting handle was removed. The acetabular liner, Depuy [id number] polyethylene liner, was inserted and lined up with the tines of the acetabular component. There was no soft tissue interposition. The liner was then impacted into position and confirmed to be well-seated. A portion of the savanna-articular cocktail was then injected around the acetabulum into the capsule and periosteum. This cocktail consisted of 123mg of Ropivacaine, 0.25mg of Epinephrine, 0.04mg of Clonidine, and 15mg of Ketorolac, diluted to 50cc. The leg was rotated to 120 degrees. Any remaining medial capsule was released until the lesser trochanter was easily palpable. A retractor was placed medially. The lateral capsule was further released into the shoulder to allow access to the greater trochanter. A Rojas retractor was placed over the greater trochanter which allowed the trochanter to flip in front of the capsule for excellent exposure. The leg was brought down into maximal extension and 20 degrees of adduction while ensuring there was no impingement on the acetabulum. Any remnant capsule within the trochanter was released. Piriformis and obturator externis were identified and protected. There was excellent access to the proximal femur. The lateral neck remnant was removed with a rongeur. A blunt canal probe was used to identify the canal and trajectory for later broaching. A box osteotome initiated the broach course. A small curved rasp and a curved curette were used to work laterally. Broaching then began with a starter Actis broach. This was inserted manually around the trochanter and into the canal before mallet blows. The broach was seated to a few millimeters below the cut level based on the neck cut and the preoperative template. Sequential broaching was continued with the Chayamunise pneumatic broaching device until a tight fit was obtained with good rotational control of the femur. A trial standard neck was inserted along with a +5 trial head. The leg was brought out of extension and adduction and then reduced with traction and internal rotation. The leg was stable anteriorly in a position of 30 degrees of extension and 90 degrees of external rotation. Fluoroscopy was used to ensure there was no fracture and the stem was seated well. Leg lengths were checked with an AP pelvis and pelvic reference points. [facility] navigation system was used to confirm appropriate positioning and leg length and offset. This undercorrected the offset and slightly over-corrected the leg length, which would be improved with going to the High offset. Once content with the desired offset and leg lengths, the leg was brought back into extension, external rotation and adduction. The periosteum and surrounding tissue was injected with remaining portion of the savanna-articular cocktail. The proximal femur was irrigated as well as the deep tissues. The Depuy Actis high collared stem, size 7, was then manually inserted into the proximal femur making sure to control rotation. It was then malleted into position with light blows, giving breaks to allow bone expansion and decrease risk of fracture. The selected Depuy Altrx Ceramic Head, size 36+5mm, was then placed onto the clean and dry trunnion and secured with impaction onto the tapered fit. The leg was brought back out of extension and adduction and reduced with traction and internal rotation. Stability was confirmed with no shuck at 90 degrees of external rotation and 30 degrees of extension. No impingement through range of motion arc. Final x-ray images were obtained with fluoroscopy to confirm adequate positioning and no intraoperative fracture. The deep tissues were thoroughly irrigated with Surgiphor, betadine solution. This was allowed to sit in the wound for 3 minutes before being thoroughly irrigated out with normal saline. The capsule was then reapproximated with the previously placed Ethibond sutures. The TFL fascia was finally closed with a No. 2 Stratafix, barbed suture. Deep tissues were then reapproximated with 0 Vicryl and a running 2-0 Vicryl. The skin was closed with a running 4-0 Monocryl in a subcuticular fashion. This was reinforced with skin glue. A Mepilex silver dressing was applied. At the end of the case, all counts were correct. Bryant was transferred to the hospital bed without difficulty and suffering no apparent complication. Bryant has a good prognosis. Physical therapy will start today and without restrictions, weight-bearing as tolerated. Aspirin 81mg BID will be used for DVT prophylaxis.
--- NOTE | 2023-08-05 12:03 | DI.RAD_ITS ---
Exam(s) XR HIP LT IN OR EXAM: XR HIP LT IN OR CLINICAL HISTORY: OSTEOARTHRITIS TECHNIQUE: 2D and realtime digital imaging was performed. CONTRAST MATERIAL: Refer to procedure report. COMPARISON: CR XR HIP LT COMPLETE AP PELVIS from 05/23/2023 FINDINGS: Fluoroscopy was provided for Dr. Vazquez during the performance of a left total hip replacement. P lease refer to the procedure report for complete details. Ka,r=1.53 mGy IMPRESSION: RADIATION DOSE DELIVERED:
[2023-08-05] MEDS: oxyCODONE 5 MG TAB PO (14:07)
--- NOTE | 2023-08-05 15:09 | W.ANESPOSTOP ---
Postoperative Evaluation Date, Time and Location Date Performed: 08/05/23 Time Performed: 13:45 Patient Location: Day Surgery Unit Vital Signs Most Recent Imported Vital Signs: Most Recent Vital Signs Temp Pulse Resp BP Pulse Ox 36.3 C L 54 L 17 148/68 H 99 08/05/23 13:30 08/05/23 13:30 08/05/23 13:30 08/05/23 13:30 08/05/23 13:30 Pain Score Most Recent Pain Score: Most Recent Pain Score Pain Level 0 08/05/23 13:30 Assessment Mental Status: Awake (Alert & Oriented to Patient Baseline) Airway and Respiratory Function: Patent airway with normal (patient baseline) respiratory exam Cardiovascular Function: Hemodynamically Stable Hydration Status: Adequately Hydrated Nausea & Vomiting: No Nausea or Vomiting Pain: Pt. Denies Any Pain Peripheral Nerve Block: Patient did not receive a nerve block
--- NOTE | 2023-08-05 15:12 | PT.INIE ---
PT Notes Visit Reasons: Left hip DJD Physical Therapy Day Surgery Initial Evaluation Date: 08/05/2023 Referring Doctor: [facility] Sanabria PT Orders: PT CONSULT: S/P ortho Surgery Precautions: WBAT on the L LE with AD. Patient Profile/Admitting Diagnosis: Patient is a 78-year-old male with degenerative joint disease of the left hip and status post left total hip arthroplasty on postoperative day 0. PMHX: Medical History?(Updated 05/23/23 @ 13:09 by Mary Grace White) Adenomatous colon polyp Estee grade dysplasia 2017 Ear drainage Family history of prostate cancer in father (03/26/18) Hydrocele (03/26/18) Osteoarthritis Sensorineural hearing loss, bilateral (09/20/13) Sessile colonic polyp (01/08/17) Surgical History?(Updated 07/24/23 @ 13:10 by Mary Grace White) Colonoscopy - IV Sedation (01/08/17) History of carpal tunnel release of both wrists History of spinal surgery (~10/03/21) Debi Garcia for spinal stenosis Tonsillectomy Social History/Home Situation: Lives alone in a mobile home with 3 steps to enter with rails on both sides. Significant other Lily will be with him for the next 2 weeks as he recovers from surgery. Independent with all aspects of ADLs although with increasing difficulty with mobility ADL performance leading to this surgery. Equipment Owned/DME: None Subjective: Reports 4/10 pain in the left hip at rest that subsided to 2/10 pain with ambulation task and HEP performance. Denies headache, chest pain, and lightheadedness throughout session. Objective: General Observation: Seated on bedside chair. Mepilex Ag over surgical incision. TEDs to be legs. So Lily present in room throughout session. Mental Status: Alert and oriented x4 Pain: As above ROM: Right Lower Extremity: Hip flexion WFL. Hip abduction WFL. Knee flexion WFL. Ankle dorsiflexion WFL. Ankle plantarflexion WFL. Left Lower Extremity: Hip flexion WFL. Hip abduction WFL. Knee flexion WFL. Ankle dorsiflexion WFL. Ankle plantarflexion WFL. Strength: Right Lower Extremity: Hip flexors 5/5. Hip abductors 5/5. Knee flexors 5/5. Knee extensors 5/5. Ankle dorsiflexors 5/5. Ankle plantarflexors 5/5. Left Lower Extremity:Hip flexors 4/5. Hip abductors 4/5. Knee flexors 5/5. Knee extensors 4/5. Ankle dorsiflexors 5/5. Ankle plantarflexors 5/5. Sensation: Intact as to pain and light pressure in bilateral lower extremities Bed Mobility/Transfers: Sit to stand standby assist with use of FWW, cues provided to use B UE for support, posture, and for AD management Stand to sit standby assist with use of FWW, cues given to reach behind for armrests for controlled descent onto chair Bed to chair standby assist with use of FWW Gait: Tolerated level surface ambulation of 200 feet using front wheeled walker with standby assist with cues provided for posture, walker management, and safe gait pattern. Reported decrease in pain level to 2?3/10 in the left hip after activity. No loss of balance. No shortness of breath. Balance: Static Sitting: Normal Dynamic Sitting: Normal Static Standing: Fair Dynamic Standing: Fair Special Tests: Mobility Limitations Standardized Measure [facility] 6 clicks Basic Mobility Inpatient Short Form: Raw Score: 24 CMS Score: 0% deficit Informed Consent/Education: Patient instructed in purpose of PT consult. THERA EX: Trained patient with correct performance of exercises below to maximize motor control, joint flexibility, soft tissue extensibility of the [] hip musculature to facilitate return to independent functional mobility performance. Packet containing MICHELL exercise protocol has been given to patient. Access Code: [email or web address] URL: [email or web address] Date: 08/05/2023 Prepared by: Madhavi Vela Exercises - Gluteal Sets - 1 x daily - 7 x weekly - 1 sets - 10 reps - 5 hold - Supine Heel Slide - 1 x daily - 7 x weekly - 1 sets - 10 reps - 5 hold - Supine Ankle Pumps - 1 x daily - 7 x weekly - 1 sets - 10 reps - 5 hold - Seated March - 1 x daily - 7 x weekly - 1 sets - 10 reps - 5 hold - Seated Long Arc Quad - 1 x daily - 7 x weekly - 1 sets - 10 reps - 5 hold Assessment: Patient requires the use of a front-wheeled walker for all mobility ADL performance to maximize independence and reduce fall risk. Patient presents with clinical signs and symptoms consistent with current/admitting diagnoses that have resulted to mobility limitations, gait instability, generalized weakness, and impairment of motor control as demonstrated by the following impairment level findings: 1. Decreased strength to left hip major muscle groups 2. Impaired standing balance Impairments are contributing to the following functional limitations: 1. Inability to safely ambulate without assistive device 2. Increase completion time for mobility ADL performance 3. Increased fall risk Patient is assessed as a 27616 moderate complexity based on the following: History: 78-year-old male with impairment level findings, functional limitations, and past medical history as indicated above Examination: Demonstrable impairment in strength, balance, and mobility level with underlying impairments and functional limitations as documented above Presentation: Evolving Decision Makin moderate complexity Goals: N/A. PT evaluation and 1-2 treatment sessions only for functional mobility training using recommended AD and for HEP instruction. Plan of Care/Treatment Plan: N/A. PT evaluation and 1-2 treatment session only for functional mobility training using recommended AD and for HEP instruction. DISCHARGE RECOMMENDATIONS: Home when medically cleared by orthopedic surgeon. Recommend outpatient PT services in order to optimize functional mobility outcomes and facilitate return to independent community ambulation without an assistive device. TREATMENT CODE/TIME: 9716 x 29 minutes for 1 unit beginning at 15:12 PM. Thank you for the opportunity to participate in the care of this patient. Madhavi Vela PT, DPT, CLT [facility] [place], [place]
== END 2023-08-05 16:00 | disposition home or self-care (01) ==
PROVIDERS: PCP Family Medicine; Visit Provider Student in an Organized Health Care Education/Training Program
PROC: (CPT 27130; principal; 2023-08-05 11:00)
DX: M16.12 Unilateral primary osteoarthritis, left hip (principal); E11.9 Type 2 diabetes mellitus without complications; M48.00 Spinal stenosis, site unspecified; I10 Essential (primary) hypertension; E78.5 Hyperlipidemia, unspecified
CPT/HCPCS: 20985; 27130; C1776; 97162; 73501; J0690; J1100; J2405

== ENCOUNTER 2023-08-18 14:25 | Outpatient (CLI) | payer MEDICARE, SELFPAY ==
--- NOTE | 2023-08-18 13:15 | DI.RAD_ITS ---
Exam(s) XR HIP LT COMPLETE AP PELVIS EXAM: XR HIP LT COMPLETE AP PELVIS CLINICAL HISTORY: 1st post op s/p L MICHELL. TECHNIQUE: 2D digital imaging was performed. Two views. COMPARISON: CR XR HIP LT COMPLETE AP PELVIS from 05/23/2023 XA XR HIP LT IN OR from 08/05/2023 FINDINGS: BONES: No acute fracture is present. No bony destructive lesion is seen. JOINTS: No dislocation present. No change in alignment of left hip prosthesis. No abnormal surroundi ng bony lucencies. Right hip joint space is maintained. SOFT TISSUE: Vascular calcifications. IMPRESSION: Unremarkable left hip prosthesis. DATA REPOSITORY: RADIATION DOSE DELIVERED:
== END 2023-08-18 14:26 | disposition home or self-care (01) ==
LOC: DIORS 09-11 13:00
PROVIDERS: PCP Family Medicine; Visit Provider Student in an Organized Health Care Education/Training Program
DX: Z96.642 Presence of left artificial hip joint (principal); Z47.1 Aftercare following joint replacement surgery
CPT/HCPCS: 73502

== ENCOUNTER → 2023-08-21 00:06 | Outpatient (CLI) | payer MEDICARE, SELFPAY ==
--- NOTE | 2023-08-21 | DI.MRI_ITS ---
Exam(s) MR ABDOMEN WO/W EXAM: MR ABDOMEN WO/W CLINICAL HISTORY: LIVER MASS, K76.89, ABNL ABD IMAGING, R93.5 TECHNIQUE: Multiplanar multisequence MRI of the Abdomen was performed. CONTRAST MATERIAL: IV Contrast: 18 mL of Dotarem contrast administered. COMPARISON: CT CT PELVIC W from 09/08/[address] CHEST/ABD W from 10/09/2022 MR MR ABDOMEN WO/W from 02/05/2023 FINDINGS: Liver: There is a 6 mm well-circumscribed homogeneously hyperintense T2 lesion in the posterior infer ior right lobe of the liver. There is a 3.2 cm lesion in the posterior segment of the right lobe of the liver. There is an 8 mm lesion in the dome of the right lobe of the liver. These lesions show v arying degrees of enhancement. The smaller lesions show complete enhancement. There is again seen i ncomplete enhancement of the large 3.2 cm lesion. These likely all reflect hepatic hemangiomas. The re is a 9 mm lesion in the central liver. This shows no enhancement and is most consistent with a cy st. These are all similar to the prior examination from 02/05/2023. Pancreas: There is again seen atrophy of the pancreas. Pancreatic calcifications are present. There is dilatation of the pancreatic duct. No evidence of a pancreatic mass. Gallbladder and Bile Ducts: Unremarkable. Adrenals: Unremarkable. Kidneys: Stable renal cyst. No suspicious renal mass. Spleen: Unremarkable. Bowel: Unremarkable. Aorta: Unremarkable. Soft Tissues: Unremarkable. Bone: There is an S-type thoracolumbar scoliosis and degenerative changes present. Lymph Nodes: Unremarkable. IMPRESSION: 1. Stable hepatic lesions which likely reflect hepatic hemangiomas. A six-month follow-up MRI is rec ommended to document continued stability. 2. Hepatic and renal cysts. 3. Stable pancreatic atrophy without evidence of a pancreatic mass. DATA REPOSITORY:
[2023-08-21] MEDS: Gadoterate meglumine 20 ML VIAL 18 ML IVP (09:25)
== END ==
PROVIDERS: PCP Family Medicine; Visit Provider Family Medicine
DX: N28.1 Cyst of kidney, acquired (principal); D18.03 Hemangioma of intra-abdominal structures
CPT/HCPCS: 74183

== ENCOUNTER → 2023-09-15 12:57 | Outpatient (BNVA) | payer MEDICARE, SELFPAY | PROVIDERS: PCP Family Medicine; Visit Provider Student in an Organized Health Care Education/Training Program | DX: Z47.1 Aftercare following joint replacement surgery (principal); Z96.642 Presence of left artificial hip joint ==

== ENCOUNTER 2024-09-03 11:39 | Outpatient (CLI) | payer OTHER, SELFPAY ==
--- NOTE | 2024-09-03 11:06 | DI.RAD_ITS ---
Exam(s) XR HIP LT AP LAT ONLY EXAM: XR HIP LT AP LAT ONLY CLINICAL HISTORY: ANNUAL F/U L MICHELL. TECHNIQUE: 2D digital imaging was performed. Two images were obtained. AP and lateral views were ob tained. COMPARISON: CR XR HIP LT COMPLETE AP PELVIS from 08/18/2023 FINDINGS: BONES: There are stable post operative changes of a left total hip replacement present. No fracture or dislocation. JOINTS: The orthopedic hardware is in good position. No evidence of hardware loosening. SOFT TISSUE: Atherosclerotic calcification is present. IMPRESSION: Stable left total hip arthroplasty.. DATA REPOSITORY: RADIATION DOSE DELIVERED:
== END 2024-09-03 11:40 | disposition home or self-care (01) ==
LOC: DIORS 11:39
PROVIDERS: PCP Family Medicine; Referring Provider Family Medicine; Visit Provider Physician Assistant
DX: Z96.642 Presence of left artificial hip joint (principal); Z47.1 Aftercare following joint replacement surgery
CPT/HCPCS: 99213; 73502

== ENCOUNTER 2024-10-15 13:40 | Outpatient (REF) | payer OTHER, SELFPAY ==
[2024-10-15 15:38] LABS: HCT 44.1 % (40.0-50.0); HGB 15.1 g/dL (13.5-17.5); MCH 32.1 pg (27.0-33.0); MCHC 34.2 % (32.0-36.0); MCV 94 fL (80-95); MPV 12.5 fL (8.0-11.0); Platelet Count 210 10^3/uL (130-400); RBC 4.71 10^6/uL (4.36-5.78); RDW 13.2 % (11.8-14.1); RDW-SD 45.3 fL; WBC 9.34 10^3/uL (4.4-10.8)
[2024-10-15 15:59] LABS: ALT 81 U/L (16-63); AST 52 U/L (15-37); Albumin 3.3 g/dL (3.4-5.0); Alkaline Phosphatase 83 U/L (46-116); Anion Gap 12.1 mmol/L (3-11); BUN 15 mg/dL (7-18); CO2 23.9 mmol/L (21.0-32.0); CREATININE 0.9 mg/dL (0.70-1.30); Calcium 8.6 mg/dL (8.5-10.1); Chloride 110 mmol/L (98-107); Estimated GFR 87.96 (mL/min/1.73m2); Glucose 193 mg/dL (74-106); Potassium 4.3 mmol/L (3.5-5.1); Sodium 146 mmol/L (136-145); TSH (W/Ref FT4) 1.56 uIU/mL (0.36-3.74); Total Protein 6.2 g/dL (6.4-8.2)
[2024-10-15 16:02] LABS: COMMENT (LAB VIEW ONLY) 53.74 mg/dL; Microalb ug/mg Crea 30.9 ug/mg Cr
== END 2024-10-15 13:41 | disposition home or self-care (01) ==
LOC: NCHCN 13:40
PROVIDERS: PCP Family Medicine; Visit Provider Family Medicine
DX: E03.9 Hypothyroidism, unspecified (principal); E11.65 Type 2 diabetes mellitus with hyperglycemia; I10 Essential (primary) hypertension
CPT/HCPCS: 80053; 85027; 82043; 82570; 84443

== ENCOUNTER 2025-01-14 15:27 | Outpatient (REF) | payer MEDICARE, SELFPAY ==
[2025-01-14 22:06] LABS: Iron 82 ug/dL (65-175); Total Iron Binding Capacity 247 ug/dL (250-450); Transferrin Sat 33 % (20-55)
[2025-01-14 22:08] LABS: ALT 29 U/L (16-63); AST 17 U/L (15-37); Albumin 3.6 g/dL (3.4-5.0); Alkaline Phosphatase 83 U/L (46-116); Anion Gap 8.3 mmol/L (3-11); BUN 22 mg/dL (7-18); Bilirubin, Total 0.4 mg/dL (0.2-1.0); CO2 26.7 mmol/L (21.0-32.0); Chloride 108 mmol/L (98-107); Estimated GFR 77.52 (mL/min/1.73m2); Ferritin 52 ng/mL (26-388); Glucose 99 mg/dL (74-106); Potassium 4.2 mmol/L (3.5-5.1); Sodium 143 mmol/L (136-145); Total Protein 6.7 g/dL (6.4-8.2)
[2025-01-14 22:43] LABS: Bilirubin, Direct 0.2 mg/dL (0.0-0.2)
[2025-01-17 12:51] LABS: HBs Antibody, Quant <3.1 mIU/mL (See Note); Hepatitis B Surface Ab Negative (See Note)
[2025-01-17 12:55] LABS: Hepatitis B Surface Ag Negative (Negative)
[2025-01-17 13:03] LABS: Hepatitis C Ab w Rflx HCV PCR Negative (Negative)
[2025-01-17 13:14] LABS: Hep B Core Antibody Negative (Negative)
== END 2025-01-14 15:28 | disposition home or self-care (01) ==
LOC: NCHCN 15:27
PROVIDERS: PCP Family Medicine; Visit Provider Family Medicine
DX: R94.5 Abnormal results of liver function studies (principal)
CPT/HCPCS: 80048; 80076; 86704; 86706; 86803; 87340; 82728; 83540; 83550

== ENCOUNTER 2025-02-04 00:50 | Outpatient (CLI) | payer MEDICARE, SELFPAY ==
--- NOTE | 2025-02-04 10:16 | DI.CTLCSR_ITS ---
Exam(s) CT CHEST LUNG CANCER SCREEN EXAM: CT CHEST LUNG CANCER SCREEN CLINICAL HISTORY: Cigarette smoker, F17.210; screening. TECHNIQUE: Imaging Protocol: Low Dose Technique CONTRAST MATERIAL: None COMPARISON: CT CT CHEST/ABD W from 10/09/2022 FINDINGS: CHEST: LUNGS: There are no ominous pulmonary nodules. There are no confluent infiltrates. Some scarring in left lung base is noted. No pleural effusions. No significant findings in the trachea and mainstem bronchi. MEDIASTINUM: There is no obvious hilar nor mediastinal adenopathy. CARDIAC: Heart size is normal. There is no pericardial effusion.Of the ascending thoracic aorta is p rominent, measuring 3.9 cm. OTHER: No adrenal masses. Abundant calcifications noted throughout the entire partially visualized p ancreas OSSEOUS: No significant osseous lesions.. IMPRESSION: 1. No significant pulmonary nodules. No infiltrates. No pleural effusions nor intrathoracic adenopa thy. 2. Chronic calcific pancreatitis. 3. Lung RADS Cat 1 - Negative: No nodules and definitely benign nodules Lung-RADS 1.0 CATEGORIES: Category 0 - Prior chest CT exam(s) being located for comparison. Category 1 - Annual screening in 12 months. No nodules or definitely benign nodules. Category 2 - Annual screening in 12 months. Benign appearance. Nodules with low likelihood of becomin g active cancer. Category 3 - 6-month follow-up. Probably benign. Short-term follow-up suggested. Nodules with low lik elihood of becoming active cancer. Category 4A - 3-month follow-up and CT/PET if >8 mm in size. Suspicious finding. Findings which requi re additional testing. Category 4B - Findings which require additional testing and tissue sampling. Category 4X - Category 3 or 4 nodules with additional features or imaging findings that increases the suspicion of malignancy. Modifier S- Potentially clinically significant findings (non lung cancer) RADIATION DOSE DELIVERED: 101.38mGy.cm Total DLP DATA REPOSITORY: All CT scans at this facility are submitted to the National Radiology Data Registry (NRDR) Dose Index Registry (DIR) with the [employer] ([employer]). RADIATION OPTIMIZATION: All CT scans at this facility use at least one of these dose optimization te chniques: automated exposure control; mA and/or kV adjustment per patient size (includes targeted exa ms where dose is matched to clinical indication); or iterative reconstruction.
== END 2025-02-04 01:10 ==
PROVIDERS: PCP Family Medicine; Visit Provider Family Medicine
DX: F17.210 Nicotine dependence, cigarettes, uncomplicated (principal); K86.1 Other chronic pancreatitis; Z12.2 Encounter for screening for malignant neoplasm of respiratory organs
CPT/HCPCS: 71271

== ENCOUNTER 2025-02-10 01:21 | Outpatient (CLI) | payer MEDICARE, SELFPAY ==
--- NOTE | 2025-02-10 | DI.MRI_ITS ---
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 Contrast injected sequences were performed following IV injection of cc of Dotarem. COMPARISON: CT CT CHEST/ABD W from 10/09/2022 MR MR ABDOMEN WO/W from 02/05/2023 MR MR ABDOMEN WO/W from 08/21/[address] CHEST LUNG CANCER SCREEN from 02/04/2025 FINDINGS: VISUALIZED LUNG BASES: No pleural effusions evident. There is no ascites evident. LIVER: There is well-defined slightly lobulated T1 hypointense and T2 hyper intense lesion again note d in the posterior aspect of the right hepatic lobe which measures 2.8 cm wide by 2.6 cm AP by 2 cm c raniocaudal. Unchanged in size from prior MRI scan of August 2023.. This lesion exhibits initial per ipheral discontinuous nodular enhancement with progressive centripetal enhancement in fashion typical of a benign cavernous hemangioma. The other smaller tiny lesions also appear unchanged. There are no new concerning liver lesions. BILIARY: There is no obvious gallbladder pathology. The CBD is not dilated. PANCREAS: Pancreas again exhibits severe atrophy with multiple foci of signal dropout consistent with chronic calcific pancreatitis and the main pancreatic duct is again noted be dilated. Also small cys tic structure in the head-neck junction of the pancreas is unchanged from [address] scan of 022. SPLEEN: Spleen is not enlarged and there are no intrasplenic lesions. ADRENALS: There are no significant adrenal masses. KIDNEYS: No solid renal masses. No hydronephrosis.Benign partially septated cyst in the posterior co rtex of the left kidney is again noted, measuring 3.9 cm AP by 2.6 cm wide by 4.3 cm craniocaudal, ex hibiting minimal change from previous smaller benign cysts in the kidneys also noted. Tiny benign hem orrhagic cyst in the superior pole of the right kidney is also unchanged from previous. These benign renal findings do not require further imaging workup. ABDOMINAL AORTA: Not enlarged and there is no significant para-aortic adenopathy. ANTERIOR ABDOMINAL WALL/GI: There is no evidence of significant anterior abdominal wall hernia in the field of view of this study.Is no evidence of obvious bowel obstruction. OSSEOUS: There are no lytic osseous lesions in the field of view of this study. There is lumbar scoli osis convex left but no fractures nor lytic osseous lesions. A small benign bone island in the left i liac bone of the pelvis is unchanged from CT scan of 2021. IMPRESSION: 1. Continued stable appearance of previously described benign-appearing findings in the liver, the la rgest of which is again noted to be a 2.8 x 2.6 x 2 cm stable lesion which exhibits signal characteri stics and enhancement pattern typical of a benign cavernous hemangioma. There are no new ominous hepa tic lesions evident. No ascites 2. Chronic calcific atrophic pancreatitis again noted DATA REPOSITORY:
[2025-02-10] MEDS: Normal Saline - Diluent 50 ML VIAL 25 ML IJ (14:57)
[2025-02-10] MEDS: Gadoterate meglumine 20 ML VIAL 19 ML IVP (14:57)
== END 2025-02-10 01:41 ==
PROVIDERS: PCP Family Medicine; Visit Provider Family Medicine
DX: D18.03 Hemangioma of intra-abdominal structures (principal); R93.3 Abnormal findings on diagnostic imaging of other parts of digestive tract
CPT/HCPCS: 74183

== ENCOUNTER → 2025-09-20 00:25 | Outpatient (CLI) | payer MEDICARE, SELFPAY ==
--- NOTE | 2025-09-20 12:00 | DI.US_ITS ---
Exam(s) US SCROTUM EXAM: US SCROTUM CLINICAL HISTORY: ENLARGED TESTICLE, N50.89, RIGHT SIDE TECHNIQUE: Ultrasound of the testes performed using grayscale, color, and Doppler imaging. COMPARISON: US SCROTUM US from 03/06/2018 FINDINGS: RIGHT HEMISCROTUM: There is a large right non septated hydrocele measuring 12.3 x 8.6 x 11.0 cm (604 mL volume) Right testicle measures 4.3 x 2.1 x 2.4 cm and there are no masses in the right testicle evident. Vascular flow is demonstrated within the right testicle The epididymis was difficult visualize most probably compressed by the large ipsilateral hydrocele. No varicocele evident. LEFT HEMISCROTUM: There is a large complex septated and loculated hydrocele on the left side measuring approximately 6 x 2.8 x 4.8 cm. The left testicle measures 3.6 x 2.0 x 2.7 cm and exhibits normal blood flow. There are no masses in left testicle. Left epididymal head appears unremarkable. Difficult to differentiate the evident middle body and tail from the septated hydrocele. No evidence lateral varicocele evident. IMPRESSION: 1. No evidence of testicular mass nor testicular torsion. 2. Large 604 mL volume non septated right hydrocele 3. Smaller complex left-sided hydrocele. DATA REPOSITORY:
== END ==
PROVIDERS: PCP Family Medicine; Visit Provider Family Medicine
DX: N50.89 Other specified disorders of the male genital organs (principal); N43.3 Hydrocele, unspecified
CPT/HCPCS: 76870